=== PATIENT | male | born 1970 | race Caucasian/White ===

== ENCOUNTER 2020-11-03 23:29 | Inpatient (IN) | payer MEDICARE, MEDICAID, OTHER, SELFPAY ==
--- NOTE | ~2020-11-03 | XR_ITS ---
EXAMINATION: XR chest 1V CLINICAL INFORMATION: Shortness of breath COMPARISON: No prior chest x-ray available TECHNIQUE: XR chest 1V Tubes and lines: None Lungs and pleura: Patchy opacities are projecting over the right lower lobe medially and left middle lung zone probably patchy infiltrates. Prominent left hilum. This could be due to lymphadenopathy or vascular prominence. Heart and mediastinum: The mediastinum is within normal limits.. Bones/soft tissue: Skeletal structures included are normal for patient's age. XR/XR chest 1V IMPRESSION: No radiographic evidence of failure. There are patchy opacities over the right lung base and left parahilar region, in the right clinical setting could be patchy areas of infiltrates. Attention to follow-up chest PA and lateral recommended in one month to ensure complete clearance AND EXCLUDE UNDERLYING PATHOLOGIC LESION. Prominent left hilum could be underlying lymph node versus vascular.
--- NOTE | ~2020-11-03 | CT_ITS ---
EXAMINATION: CT ANGIOGRAM OF THE CHEST WITH AND WITHOUT CONTRAST (CT PULMONARY ANGIOGRAM FOR PE) CLINICAL INFORMATION: Pleuritic chest pain COMPARISON: None TECHNIQUE: Prior to contrast administration, noncontrast localization images were obtained. Subsequently, multidetector volumetric imaging was performed from the thoracic inlet to below the diaphragms following the administration of 65 mL Omnipaque 350 intravenous contrast. No contrast reaction reported Sagittal, coronal, and MIP oblique sagittal reformatted images were obtained on the CT workstation, uploaded to PACS, and reviewed. This CT examination was performed using dose optimization techniques as appropriate, variously including the following: *Automated exposure control *Adjustment of mA and/or kV according to patient size (this includes techniques or standardized protocols for targeted exams where dose is matched to indication/reason for exam; i.e. extremities or head) *Use of iterative reconstruction technique Total exam dose-length product 422 mGy-cm FINDINGS: QUALITY OF STUDY/CONTRAST BOLUS: Satisfactory. PULMONARY ARTERIES: Bilateral main pulmonary artery filling defects consistent with emboli. Extension into the lobar and segmental branches. THORACIC AORTA: No aneurysm or dissection. LUNG: Central airways are patent. Moderate paraseptal emphysema. No consolidation. PLEURA: No pleural effusion or pneumothorax. MEDIASTINUM: Normal heart size. No pericardial effusion. No hilar or mediastinal lymphadenopathy. There is septal bowing suggesting right heart strain. CHEST WALL/AXILLA: No axillary or internal mammary lymphadenopathy. OSSEOUS STRUCTURES: No acute or suspicious osseous abnormality. UPPER ABDOMEN: Unremarkable. No reflux of contrast into the hepatic veins to suggest elevated right heart pressures. CT/CT angio chest PE protocol IMPRESSION: Bilateral pulmonary emboli starting at the central right and left pulmonary arteries and extending into the more distal branches. Evidence of elevated right heart pressures. Moderate paraseptal emphysema. This critical result was discussed with Ciara Guzmán MD by telephone at 11/04/2020 2:18 AM and it was ascertained that the content and urgency of the report was understood at the time of direct communication. VTE: positive
--- NOTE | 2020-11-03 23:32 | ED_ITS ---
HPI - Chest Pain General Chief Complaint: Chest Pain Stated Complaint: chest pain sob Time Seen by Provider: 11/03/20 23:32 Source: patient and EMS Mode of arrival: EMS Limitations: other (vague historian) History of Present Illness HPI narrative: 49 yo male with hx of IV cocaine abuse 1 week ago, on methadone for recovery as well - c/o since that time L sided pleuritic chest pain and exertional dyspnea, denies prior cardiac workup in the past, c/o 1 month of RLE swelling MD complaint: chest pain Pertinent past history: other (IV cocaine abuse) Onset (ago): week(s) (1) Timing of current episode: constant Onset: during rest and during exertion Pain location: left chest Pain radiation: none Severity: moderate Quality: sharp Relieving factors: nothing Exacerbating factors: exertion and inspiration Context: other (recent IVDA) Associated symptoms: dyspnea Treatment prior to arrival: aspirin ([phone]) Related Data Home Medications Medication Instructions Recorded Confirmed methadone 10 mg/5 mL oral solution 10 mg PO Q6H 06/02/20 11/04/20 Allergies Allergy/AdvReac Type Severity Reaction Status Date / Time No Known Allergies Allergy Mild N/A Verified 09/02/20 08:07 Review of Systems Review of Systems: Constitutional : No Weight loss, No Fever, No Chills ENT/Mouth : No sore throat, No Rhinorrhea Eyes: No Eye Pain, No Swelling Cardiovascular : pos Chest Pain, pos SOB, pos Dyspnea on Exertion, No Orthopnea, pos R leg Edema, No Palpitations Respiratory : No Cough, No Sputum Gastrointestinal : no Nausea, No Vomiting, No Diarrhea, No abdominal Pain, No Hematochezia, No Melena Genitourinary : No Dysuria, No Urinary Frequency Musculoskeletal : No joint pain, No Myalgias, No Joint Swelling Skin : No Skin Lesions, No rash Neuro : No Weakness, No Numbness, No Dizziness, No Headache Psych : No Anxiety/Panic, No Depression Heme/Lymph: No Bruising, No Lymphadenopathy Endocrine : No Polyuria, No Polydipsia All other systems reviewed and are negative [facility] Past Medical History Medical History (Updated 11/04/20 @ 02:04 by Ciara Guzmán DO) Lumbar disc disease Opiate use Right wrist drop Surgical History History of inguinal hernia repair History of lumbar fusion History of open reduction and internal fixation (ORIF) procedure History of ventral hernia repair Family History Family History Father Leukemia Mother CHF (congestive heart failure) Hypertension H/O ETOH abuse Sister Diabetes Pancreatitis Daughter In good health Son No problems noted. Social History Social History (Updated 11/03/20 @ 23:51 by Ciara Guzmán DO) Alcohol intake: current Alcohol intake frequency: 0-2 drinks per day Patient Tobacco Use Status: Current everyday Tobacco user Cigarette Packs Per Day: 1 Smoked in Last 30 Days: Yes Use of substances other than those prescribed or required for medical reasons: Yes Substance Use Type: Crack/Cocaine, Heroin and IV Drugs Substance Use Frequency: Chronic Longstanding Last Used Substance: Just Prior to Admission Advance Directives: No Advance Directives Information Provided: No Physical Exam Vital Signs: Vital Signs: Last Vital Signs Temp 98.4 F 11/04/20 02:00 Pulse 78 11/04/20 02:00 Resp 16 11/04/20 02:00 BP 116/79 11/04/20 02:00 Pulse Ox 98 11/04/20 02:00 Body Mass Index 31.8 Appearance: Alert. Oriented X3. No acute distress. Anxious Eyes: Pupils equal, round and reactive to light. ENT: Pharynx normal. Neck: Normal inspection. Neck supple. CVS: Normal heart rate and rhythm. Pulses normal. Respiratory: No respiratory distress. Breath sounds normal. Abdomen: Soft and nontender. Skin: Skin warm and dry. Normal skin color. Normal skin turgor. ?track centeno in L AC, bruising noted along veins in R AC Extremities: R leg non pittind edema R>L No calf ttp Neuro: Oriented X 3. No motor deficit. No sensory deficit. Course Course Course Narrative: initial EKG had artifact noted asked for repeat troponin elevated has had chest pain for 1 week, PE study pending at this time - no ischemia on EKG though has rightward axis but no prior EKGs IV morphine for pain will hold nitro at this time given pain is atypical in nature and is pleuritic CTA reviewed by me - PE noted no saddle, IV heparin ordered standard infusion plts and coags already drawn call from Radiology 218aam - bilateral extensive PE, mild signs of R heart strain at this time clinically the patient is HD stable, no hypoxia, HR normal, stable BP discussion with ICU Dr. Gomez - care seems appropriate with heparin gtt, continue heparin gtt and he will evaluate in ED with ECHO given clinical stability no need to transfer at this time or give tPa, hospitalist has declined admission at this time 235am Dr. Gomez at bedside to ECHO patient, currently has remained stable while in ED, some R heart strain but nothing significant and clinically he looks well - would continue anticoagulation at this time, no indication for tPa - will admit patient to the ICU given hospitalist discomfort to admit on the floor. MDM - Chest Pain MDM Narrative Medical decision making narrative: 49 yo male with hx of IV cocaine abuse 1 week ago, on methadone for recovery as well - c/o since that time L sided pleuritic chest pain and exertional dyspnea, denies prior cardiac workup in the past, c/o 1 month of RLE swelling - at this time he is a very vague historian seems atypical for ACS but given pleuritic chest pain and RLE chronic edema will need CTA study, denies fevers does not appear toxic will obtain cultures but endocarditis lower on the list given reported one time use of IVDA, will also obtain EKG and serial troponins Lab Data Result diagrams: 11/04/20 00:26 11/04/20 00:19 Labs: Lab Results 11/04/20 11/04/20 11/04/20 Range/Units 00:19 00:19 00:19 WBC (4.8-10.8) X10*3/uL RBC (4.60-5.80) X10*6/uL Hgb (14.0-18.0) g/dl Hct (42-52) % MCV (80-98) fL MCH (27.0-33.0) pg MCHC (31.0-36.0) g/dl RDW (11.0-16.0) % Plt Count (160-400) X10*3/uL MPV (9.4-12.4) fL Immature Gran % (Auto) (0.0-0.4) % Neut % (Auto) (45-73) % Lymph % (Auto) (20-40) % [place] % (Auto) (2-11) % Eos % (Auto) (0-4) % Baso % (Auto) (0-2) % Lymph # (Auto) (1.2-4.9) X10*3/uL [place] # (Auto) (0.1-1.2) X10*3/uL Eos # (Auto) (0.0-0.4) X10*3/uL Baso # (Auto) (0.0-0.2) X10*3/uL Abs Immat Gran (auto) (0.00-0.03) X10*3/uL Absolute Neuts (auto) (2.0-8.3) X10*3/uL Absolute Nucleated RBC (0.0-0.012) X10*3/uL Nucleated RBC % (auto) (0.0-0.2) /100WBC ESR (0-15) MM/HR PT 13.1 H (9.9-13.0) SEC INR 1.2 H (0.9-1.1) APTT 35.3 (24.1-38.0) SEC Sodium 140 (135-145) mmol/L Potassium 4.1 (3.3-5.1) mmol/L Chloride 103 (96-108) mmol/L Carbon Dioxide 25 (22-29) mmol/L Anion Gap 16 (12-20) BUN 9 (9-16) mg/dL Creatinine 1.03 (0.5-1.4) mg/dL Estim Creat Clear Calc 110.7 Estimated GFR > 60 Random Glucose 96 (60-115) mg/dL Lactic Acid (0.5-2.0) mmol/L Calcium 9.5 (8.4-10.2) mg/dL Magnesium 1.9 (1.6-2.6) mg/dL Total Bilirubin 0.4 (0.0-1.0) mg/dL Direct Bilirubin 0.2 (0.0-0.5) mg/dL AST 22 (5-37) U/L ALT 18 (0-40) U/L Alkaline Phosphatase 96 (39-117) U/L Troponin I High Sens 429.6 H* (<3.5-35.0) ng/L C-Reactive Protein 5.34 H (< or = 0.50) mg/dL B-Natriuretic Peptide 78 (<100) pg/mL Total Protein 7.7 (6.5-8.0) g/dL Albumin 4.6 (3.5-5.0) g/dL Lipase 17 (8-78) U/L Urine Opiates Screen (Not Detect) Ur Barbiturates Screen (Not Detect) Ur Phencyclidine Scrn (Not Detect) Ur Amphetamines Screen (Not Detect) U Benzodiazepines Scrn (Not Detect) Urine Cocaine Screen (Not Detect) U Marijuana (THC) Screen (Not Detect) COVID-19 (GAB[facility]EL) (Negative) COVID-19 Clin Com 11/04/20 11/04/20 11/04/20 Range/Units 00:20 00:20 00:26 WBC 11.7 H (4.8-10.8) X10*3/uL RBC 4.58 L (4.60-5.80) X10*6/uL Hgb 14.3 (14.0-18.0) g/dl Hct 42.5 (42-52) % MCV 92.8 (80-98) fL MCH 31.2 (27.0-33.0) pg MCHC 33.6 (31.0-36.0) g/dl RDW 13.3 (11.0-16.0) % Plt Count 175 (160-400) X10*3/uL MPV 11.1 (9.4-12.4) fL Immature Gran % (Auto) 0.3 (0.0-0.4) % Neut % (Auto) 76.1 H (45-73) % Lymph % (Auto) 13.2 L (20-40) % [place] % (Auto) 7.4 (2-11) % Eos % (Auto) 2.7 (0-4) % Baso % (Auto) 0.3 (0-2) % Lymph # (Auto) 1.5 (1.2-4.9) X10*3/uL [place] # (Auto) 0.9 (0.1-1.2) X10*3/uL Eos # (Auto) 0.3 (0.0-0.4) X10*3/uL Baso # (Auto) 0.0 (0.0-0.2) X10*3/uL Abs Immat Gran (auto) 0.04 H (0.00-0.03) X10*3/uL Absolute Neuts (auto) 8.9 H (2.0-8.3) X10*3/uL Absolute Nucleated RBC 0.000 (0.0-0.012) X10*3/uL Nucleated RBC % (auto) 0.0 (0.0-0.2) /100WBC ESR (0-15) MM/HR PT (9.9-13.0) SEC INR (0.9-1.1) APTT (24.1-38.0) SEC Sodium (135-145) mmol/L Potassium (3.3-5.1) mmol/L Chloride (96-108) mmol/L Carbon Dioxide (22-29) mmol/L Anion Gap (12-20) BUN (9-16) mg/dL Creatinine (0.5-1.4) mg/dL Estim Creat Clear Calc Estimated GFR Random Glucose (60-115) mg/dL Lactic Acid 1.6 (0.5-2.0) mmol/L Calcium (8.4-10.2) mg/dL Magnesium (1.6-2.6) mg/dL Total Bilirubin (0.0-1.0) mg/dL Direct Bilirubin (0.0-0.5) mg/dL AST (5-37) U/L ALT (0-40) U/L Alkaline Phosphatase (39-117) U/L Troponin I High Sens (<3.5-35.0) ng/L C-Reactive Protein (< or = 0.50) mg/dL B-Natriuretic Peptide (<100) pg/mL Total Protein (6.5-8.0) g/dL Albumin (3.5-5.0) g/dL Lipase (8-78) U/L Urine Opiates Screen (Not Detect) Ur Barbiturates Screen (Not Detect) Ur Phencyclidine Scrn (Not Detect) Ur Amphetamines Screen (Not Detect) U Benzodiazepines Scrn (Not Detect) Urine Cocaine Screen (Not Detect) U Marijuana (THC) Screen (Not Detect) COVID-19 ([facility]ABRIEL) Negative (Negative) COVID-19 Clin Com See Note 11/04/20 11/04/20 Range/Units 00:26 01:00 WBC (4.8-10.8) X10*3/uL RBC (4.60-5.80) X10*6/uL Hgb (14.0-18.0) g/dl Hct (42-52) % MCV (80-98) fL MCH (27.0-33.0) pg MCHC (31.0-36.0) g/dl RDW (11.0-16.0) % Plt Count (160-400) X10*3/uL MPV (9.4-12.4) fL Immature Gran % (Auto) (0.0-0.4) % Neut % (Auto) (45-73) % Lymph % (Auto) (20-40) % [place] % (Auto) (2-11) % Eos % (Auto) (0-4) % Baso % (Auto) (0-2) % Lymph # (Auto) (1.2-4.9) X10*3/uL [place] # (Auto) (0.1-1.2) X10*3/uL Eos # (Auto) (0.0-0.4) X10*3/uL Baso # (Auto) (0.0-0.2) X10*3/uL Abs Immat Gran (auto) (0.00-0.03) X10*3/uL Absolute Neuts (auto) (2.0-8.3) X10*3/uL Absolute Nucleated RBC (0.0-0.012) X10*3/uL Nucleated RBC % (auto) (0.0-0.2) /100WBC ESR 13 (0-15) MM/HR PT (9.9-13.0) SEC INR (0.9-1.1) APTT (24.1-38.0) SEC Sodium (135-145) mmol/L Potassium (3.3-5.1) mmol/L Chloride (96-108) mmol/L Carbon Dioxide (22-29) mmol/L Anion Gap (12-20) BUN (9-16) mg/dL Creatinine (0.5-1.4) mg/dL Estim Creat Clear Calc Estimated GFR Random Glucose (60-115) mg/dL Lactic Acid (0.5-2.0) mmol/L Calcium (8.4-10.2) mg/dL Magnesium (1.6-2.6) mg/dL Total Bilirubin (0.0-1.0) mg/dL Direct Bilirubin (0.0-0.5) mg/dL AST (5-37) U/L ALT (0-40) U/L Alkaline Phosphatase (39-117) U/L Troponin I High Sens (<3.5-35.0) ng/L C-Reactive Protein (< or = 0.50) mg/dL B-Natriuretic Peptide (<100) pg/mL Total Protein (6.5-8.0) g/dL Albumin (3.5-5.0) g/dL Lipase (8-78) U/L Urine Opiates Screen POSITIVE H (Not Detect) Ur Barbiturates Screen Not Detected (Not Detect) Ur Phencyclidine Scrn Not Detected (Not Detect) Ur Amphetamines Screen Not Detected (Not Detect) U Benzodiazepines Scrn Not Detected (Not Detect) Urine Cocaine Screen POSITIVE H (Not Detect) U Marijuana (THC) Screen Not Detected (Not Detect) COVID-19 ([facility]AB[facility]EL) (Negative) COVID-19 Clin Com ECG Data ECG #1: Attestation: I personally reviewed and interpreted this ECG as follows: ECG interpretation date: 11/04/20 ECG interpretation time: 01:12 Interpretation: Rate: 85 Rhythm: NSR [place]: rightwards Normal P waves. Normal [place]. Normal QRS complex. ST T wave : nonspecific, no JODIE artifact noted qTC: normal prior studies: none available The study has been interpreted contemporaneously by me. EKG #2 Rate: Rhythm: [place]: Normal P waves. Normal [place]. Normal QRS complex. ST T wave : qTC: prior studies: The study has been interpreted contemporaneously by me. . Critical Care Time Critical Care Time Critical Care Time: Yes Total Critical Care Time: 30 Attestation: IV morphine for pain, CT scan for PE, heparin gtt for extensive PE I attest to this time spent taking care of the patient Discharge Plan Discharge Clinical Impression: Chest pain, pleuritic Pulmonary emboli Qualifiers: Pulmonary embolism type: other Chronicity: acute Acute cor pulmonale presence: unspecified Qualified Code(s): I26.99 - Other pulmonary embolism without acute cor pulmonale Patient Disposition: Admitted As Inpatient
[2020-11-03 23:33] VITALS: BP 118/78; BP 124/85; PULSE 83; PULSE 88; RESP 18; TEMP 37; O2SAT 100; O2SAT 96; BMI 31.8
--- NOTE | 2020-11-03 23:40 | PC.NURSE ---
cp onset- approximately 1 week ago. reports left sided cp, worsening on respirations and, unable to ambulate up stairs without sob. pt is speaking full sentence. Pt reports sob- when talking. Pt reports intermittent fevers since last week. Pt reports recent cocaine use, within last month. reports every day smoke. pt takes methadone each day. denies hep c.
--- NOTE | 2020-11-03 23:44 | ECG_ITS ---
Test Reason : REPEAT Blood Pressure : / mmHG Vent. Rate : 078 BPM Atrial Rate : 078 BPM P-R Int : 158 ms QRS Dur : 098 ms QT Int : 410 ms P-R-T Axes : 066 102 029 degrees QTc Int : 467 ms Normal sinus rhythm Rightward axis Borderline ECG When compared with ECG of 03-NOV-2020 23:35, QT has lengthened Referred By: Ciara Guzmán Electronically Signed By:
[2020-11-04] VITALS (18 sets, daily range): BP systolic 92–129; BP diastolic 60–81; PULSE 63–89; RESP 12–20; TEMP 36.3–37.1; O2SAT 88–98; BMI 32.0
[2020-11-04 00:32] LABS: MANUAL DIFF FLAG NO
[2020-11-04 00:33] LABS: Basophils Percent Auto 0.3 % (0-2); Eosinophils Absolute Auto 0.3 X10*3/uL (0.0-0.4); Eosinophils Percent Auto 2.7 % (0-4); Hematocrit 42.5 % (42-52); Hemoglobin 14.3 g/dl (14.0-18.0); Imm Gran Abs Auto 0.04 X10*3/uL (0.00-0.03); Imm Gran Pct Auto 0.3 % (0.0-0.4); Lymphocytes Absolute Auto 1.5 X10*3/uL (1.2-4.9); Lymphocytes Percent Auto 13.2 % (20-40); Mean Corpuscular HGB Conc 33.6 g/dl (31.0-36.0); Mean Corpuscular Hemoglobin 31.2 pg (27.0-33.0); Mean Corpuscular Volume 92.8 fL (80-98); Mean Platelet Volume 11.1 fL (9.4-12.4); Monocytes Absolute Auto 0.9 X10*3/uL (0.1-1.2); Monocytes Percent Auto 7.4 % (2-11); Neutrophils Absolute Auto 8.9 X10*3/uL (2.0-8.3); Neutrophils Percent Auto 76.1 % (45-73); Platelet Count 175 X10*3/uL (160-400); Red Blood Count 4.58 X10*6/uL (4.60-5.80); Red Cell Distribution Width 13.3 % (11.0-16.0); White Blood Count 11.7 X10*3/uL (4.8-10.8)
[2020-11-04 00:37] LABS: INTERNATIONAL NORM RATIO 1.2 (0.9-1.1); Prothrombin Time 13.1 SEC (9.9-13.0)
[2020-11-04 00:40] LABS: Partial Thromboplastin Time 35.3 SEC (24.1-38.0)
[2020-11-04 00:54] LABS: Lactic Acid 1.6 mmol/L (0.5-2.0)
[2020-11-04 01:12] LABS: COVID-19 Test Negative (Negative); IDNOW Serial# 9DD0AD1C
[2020-11-04 01:14] LABS: Alanine Aminotransferase 18 U/L (0-40); Albumin Level 4.6 g/dL (3.5-5.0); Alkaline Phosphatase 96 U/L (39-117); Anion Gap 16 (12-20); Aspartate Amino Transferase 22 U/L (5-37); Bilirubin Direct 0.2 mg/dL (0.0-0.5); Bilirubin Total 0.4 mg/dL (0.0-1.0); Blood Urea Nitrogen 9 mg/dL (9-16); Calcium 9.5 mg/dL (8.4-10.2); Carbon Dioxide 25 mmol/L (22-29); Chloride 103 mmol/L (96-108); Creatinine Clr Calc Pharmacy 110.7; Estimated Glomerular Filt Rate > 60; Glucose Random 96 mg/dL (60-115); Lipase 17 U/L (8-78); Magnesium 1.9 mg/dL (1.6-2.6); Potassium 4.1 mmol/L (3.3-5.1); Sodium 140 mmol/L (135-145); Total Protein 7.7 g/dL (6.5-8.0)
--- NOTE | 2020-11-04 01:17 | ECG_ITS ---
Test Reason : REPEAT Blood Pressure : / mmHG Vent. Rate : 075 BPM Atrial Rate : 075 BPM P-R Int : 172 ms QRS Dur : 096 ms QT Int : 394 ms P-R-T Axes : 068 094 036 degrees QTc Int : 439 ms Normal sinus rhythm Rightward axis Borderline ECG When compared with ECG of 04-NOV-2020 01:16, No significant change was found Referred By: Ciara Guzmán Electronically Signed By:
[2020-11-04 01:20] LABS: Troponin-I High Sensitivity 429.6 ng/L (<3.5-35.0)
--- NOTE | 2020-11-04 01:22 | ECG_ITS ---
Test Reason : CHEST PAIN Blood Pressure : / mmHG Vent. Rate : 085 BPM Atrial Rate : 085 BPM P-R Int : 166 ms QRS Dur : 078 ms QT Int : 334 ms P-R-T Axes : 065 099 061 degrees QTc Int : 397 ms Artifact in tracing Normal sinus rhythm Rightward axis Borderline ECG No previous ECGs available Referred By: Ciara Guzmán Electronically Signed By:CARYL YO
[2020-11-04 01:41] LABS: C Reactive Protein 5.34 mg/dL (< or = 0.50)
[2020-11-04] MEDS: 0.9 % Sodium Chloride 1,000 ML 999 ML IVCONT (01:48)
[2020-11-04] MEDS: iohexoL 350 MG/ML 100 ML INFUS..BTL 65 ML IV (01:49)
[2020-11-04] MEDS: Morphine Sulfate 4 MG/ML CARTRIDGE IVPUSH ×2 (01:49→20:21)
[2020-11-04] MEDS: ondansetron HCL 4 MG/2 ML VIAL IVPUSH (01:49)
[2020-11-04] MEDS: Heparin Sodium,Porcine 5,000 UNIT/ML VIAL 8500 UNIT IVPUSH (01:53)
[2020-11-04 01:57] LABS: Amphetamine Screen Urine Not Detected (Not Detect); Barbiturates, Urine Not Detected (Not Detect); Benzodiazepines Screen Urine Not Detected (Not Detect); Cannabinoid Screen Urine Not Detected (Not Detect); Cocaine Screen Urine POSITIVE (Not Detect); Opiate Screen Urine POSITIVE (Not Detect); Phencyclidine Screen Urine Not Detected (Not Detect)
[2020-11-04] MEDS: Heparin Sodium,Porcine/1/2NS 25,000 UNIT/250 ML IV.SOLN 14.94 UNIT IVCONT (01:57)
[2020-11-04 02:14] LABS: Erythrocyte Sedimentation Rate 13 MM/HR (0-15)
[2020-11-04 02:31] LABS: B Type Natriuretic Peptide 78 pg/mL (<100)
[2020-11-04 07:45] LABS: PTT Heparin Drip 178.7 SEC (53-77.9)
[2020-11-04 08:42] LABS: PTT Heparin Drip 135.8 SEC (53-77.9)
[2020-11-04 10:13] LABS: PTT Heparin Drip 48.3 SEC (53-77.9)
--- NOTE | 2020-11-04 10:53 | MHC.CM.PN ---
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 Pt is active with a methadone clinic: form with dosing is in his chart: Pt has no services at this time - would like to speak with CARE team re: assistance with ongoing substance use/methadone treatment. Informed MD of pt request. No additional CM needs anticipated
--- NOTE | 2020-11-04 13:57 | P.HPCC_ITS ---
History of Present Illness Date of Service: 11/04/20 Chief Complaint: dyspnea 49-year-old presumably in a detox program for opiate abuse on methadone but urine toxicology positive for opiates and cocaine so clearly he is doing both noted for several weeks progressive increase in the girth of his right lower extremity and then progressive weakness and shortness of breath and chest discomfort and the ER noted positive troponin and BNP with a right intraventricular conduction defect as well as right axis so CTA of the chest was performed indicating significant proximal bilateral pulmonary emboli and my bedside echo showed moderately enlarged right ventricle with with a partial paradoxical motion of the interventricular septum and predominant contractility noted in the apex with the base being virtually akinetic and is certainly consistent with acute right heart dysfunction related to the significant clot burden of the PE however he was not hypotensive not even hypoxic on room air with no demonstrable work of breathing he basically look comfortable could not quite justify the risk of tPA so we elected to place him on heparin and observe him in the ICU with the intent of converting him to tPA should he exacerbate Review of Systems Review of Systems: Yes all other systems are reviewed and are negative PMFSH Past Medical History Medical History (Updated 11/04/20 @ 14:02 by Rochelle Gomez MD) Cyst near coccyx Lumbar disc disease Nasal septum fracture Opiate use Polysubstance dependence including opioid type drug, episodic abuse Right wrist drop Cognitive capacity: cognitive capacity within normal limits Functional capacity: independent ambulation Family History Family History Father Leukemia Mother CHF (congestive heart failure) Hypertension H/O ETOH abuse Sister Diabetes Pancreatitis Daughter In good health Son No problems noted. Surgical History Surgical History History of inguinal hernia repair History of lumbar fusion History of open reduction and internal fixation (ORIF) procedure History of ventral hernia repair Social History Social History (Updated 11/03/20 @ 23:51 by Ciara Guzmán DO) Household Members: Other Household Members Other:: Aunt Housing: House Do you presently have visiting nurse or other home services: No Alcohol intake: current Alcohol intake frequency: 0-2 drinks per day Patient Tobacco Use Status: Current everyday Tobacco user Tobacco use type: Cigarette Cigarette Packs Per Day: 1 Cigarettes Per Day: 20.0 Years Smoked: 33 Smoked in Last 30 Days: Yes e-Cigarette/Vaping Use: Former Use Patient Interested in Nicotine Replacement: Yes Patient Given Instructions on How to Stop Smoking: Yes Date Education Initiated: 11/04/20 Second Hand Smoke Exposure: Yes Use of substances other than those prescribed or required for medical reasons: Yes Substance Use Type: Crack/Cocaine and Heroin Substance Use Frequency: Occasionally Last Used Substance: Days (ago) Currently Displaying Signs/Symptoms of Drug Intoxication Withdrawal: No Any prior treatment program specific to substance use: Yes ([facility]) Have you been hit, kicked, punched, or otherwise hurt by someone within the past year? If so, by whom?: No Do you feel safe in your current relationship?: Yes Is there a partner from a previous relationship who is making you feel unsafe now?: No Are you made to feel afraid or neglected: No [facility] Practices: [facility] Advance Directives: No Advance Directives Information Provided: No Do you have thoughts of harming others: None Do you have a plan to hurt others: No Plan Recently lost weight without trying: No Nutrition Risks: No Nutritional Risk Poor oral hygiene: No service: No Current occupational status: disabled Meds Allergies Allergy/AdvReac Type Severity Reaction Status Date / Time No Known Allergies Allergy Mild N/A Verified 09/02/20 08:07 Active Medications: Current Medications Generic Name Dose Route Start Last Admin Trade Name Freq PRN Reason Stop Dose Admin Heparin Sodium (Porcine) 8,500 unit 11/04/20 01:44 Heparin Sodium,Porcine 5,000 Unit/Ml Vial 80 unit/kg (8500 unit) IVPUSH BOLUS PRN 80 unit/kg - Heparin Protocol Heparin Sodium/Sodium Chloride 25,000 unit in 250 mls @ 0 mls/hr 11/04/20 01:45 11/04/20 10:28 IVCONT 10 units/kg/hr .Q0M BOBBI 10.67 mls/hr Titration Protocol Per Protocol Methadone HCl 120 mg 11/04/20 09:00 11/04/20 11:28 Methadone Hcl 1 Mg/0.1 Ml Oral.Conc PO 120 mg DAILY [facility] Administration Pharmacy Consult 1 each 11/04/20 01:29 Consult Rx Perform Med Rec MISCELLANE ONCE PRN Consult order Home Medications Medication Instructions Recorded Confirmed Last Taken Type methadone 10 mg/5 mL oral solution 125 mg PO DAILY 06/02/20 11/04/2021 09:26 History 125 mg gabapentin 1 cap PO NEEDED PRN 11/04/20 11/04/20 10/28/20 History 1 Physical Exam Vital Signs: Vital Signs: Last Vital Signs Temp 97.3 F 11/04/20 12:00 Pulse 71 11/04/20 13:00 Resp 20 11/04/20 13:00 BP 112/76 11/04/20 13:00 Pulse Ox 96 11/04/20 13:00 Body Mass Index 32.0 awake alert and nonfocal neurologically no neck vein distension and good bilateral carotid upstrokes and no murmurs or bruits abdomen benign no organomegaly chest with no adventitious sounds Results Labs CBC and Chem 7: 11/04/20 00:26 11/04/20 00:19 Labs: Laboratory Results - last 24 hr 11/04/20 11/04/20 11/04/20 00:19 00:19 00:19 MCV MCH MCHC RDW Plt Count MPV Immature Gran % (Auto) Neut % (Auto) Lymph % (Auto) [place] % (Auto) Eos % (Auto) Baso % (Auto) Lymph # (Auto) [place] # (Auto) Eos # (Auto) Baso # (Auto) Abs Immat Gran (auto) Absolute Neuts (auto) Absolute Nucleated RBC Nucleated RBC % (auto) ESR PT 13.1 H INR 1.2 H APTT 35.3 PTT (Heparin Protocol) Anion Gap 16 Estim Creat Clear Calc 110.7 Estimated GFR > 60 Random Glucose 96 Lactic Acid Calcium 9.5 Magnesium 1.9 Total Bilirubin 0.4 Direct Bilirubin 0.2 AST 22 ALT 18 Alkaline Phosphatase 96 Troponin I High Sens 429.6 H* C-Reactive Protein 5.34 H B-Natriuretic Peptide 78 Total Protein 7.7 Albumin 4.6 Lipase 17 Urine Opiates Screen Ur Barbiturates Screen Ur Phencyclidine Scrn Ur Amphetamines Screen U Benzodiazepines Scrn Urine Cocaine Screen U Marijuana (THC) Screen COVID-19 ([facility]EL) COVID-19 Clin Com 11/04/20 11/04/20 11/04/20 00:20 00:20 00:26 MCV 92.8 MCH 31.2 MCHC 33.6 RDW 13.3 Plt Count 175 MPV 11.1 Immature Gran % (Auto) 0.3 Neut % (Auto) 76.1 H Lymph % (Auto) 13.2 L [place] % (Auto) 7.4 Eos % (Auto) 2.7 Baso % (Auto) 0.3 Lymph # (Auto) 1.5 [place] # (Auto) 0.9 Eos # (Auto) 0.3 Baso # (Auto) 0.0 Abs Immat Gran (auto) 0.04 H Absolute Neuts (auto) 8.9 H Absolute Nucleated RBC 0.000 Nucleated RBC % (auto) 0.0 ESR PT INR APTT PTT (Heparin Protocol) Anion Gap Estim Creat Clear Calc Estimated GFR Random Glucose Lactic Acid 1.6 Calcium Magnesium Total Bilirubin Direct Bilirubin AST ALT Alkaline Phosphatase Troponin I High Sens C-Reactive Protein B-Natriuretic Peptide Total Protein Albumin Lipase Urine Opiates Screen Ur Barbiturates Screen Ur Phencyclidine Scrn Ur Amphetamines Screen U Benzodiazepines Scrn Urine Cocaine Screen U Marijuana (THC) Screen COVID-19 ([facility]AB[facility]EL) Negative COVID-19 QThru Com See Note 11/04/20 11/04/20 11/04/20 00:26 01:00 07:11 MCV MCH MCHC RDW Plt Count MPV Immature Gran % (Auto) Neut % (Auto) Lymph % (Auto) [place] % (Auto) Eos % (Auto) Baso % (Auto) Lymph # (Auto) [place] # (Auto) Eos # (Auto) Baso # (Auto) Abs Immat Gran (auto) Absolute Neuts (auto) Absolute Nucleated RBC Nucleated RBC % (auto) ESR 13 PT INR APTT PTT (Heparin Protocol) 178.7 H* Anion Gap Estim Creat Clear Calc Estimated GFR Random Glucose Lactic Acid Calcium Magnesium Total Bilirubin Direct Bilirubin AST ALT Alkaline Phosphatase Troponin I High Sens C-Reactive Protein B-Natriuretic Peptide Total Protein Albumin Lipase Urine Opiates Screen POSITIVE H Ur Barbiturates Screen Not Detected Ur Phencyclidine Scrn Not Detected Ur Amphetamines Screen Not Detected U Benzodiazepines Scrn Not Detected Urine Cocaine Screen POSITIVE H U Marijuana (THC) Screen Not Detected COVID-19 ([facility]EL) COVID-Offsite Care Resources 11/04/20 11/04/20 08:06 09:55 MCV MCH MCHC RDW Plt Count MPV Immature Gran % (Auto) Neut % (Auto) Lymph % (Auto) [place] % (Auto) Eos % (Auto) Baso % (Auto) Lymph # (Auto) [place] # (Auto) Eos # (Auto) Baso # (Auto) Abs Immat Gran (auto) Absolute Neuts (auto) Absolute Nucleated RBC Nucleated RBC % (auto) ESR PT INR APTT PTT (Heparin Protocol) 135.8 H* D 48.3 L D Anion Gap Estim Creat Clear Calc Estimated GFR Random Glucose Lactic Acid Calcium Magnesium Total Bilirubin Direct Bilirubin AST ALT Alkaline Phosphatase Troponin I High Sens C-Reactive Protein B-Natriuretic Peptide Total Protein Albumin Lipase Urine Opiates Screen Ur Barbiturates Screen Ur Phencyclidine Scrn Ur Amphetamines Screen U Benzodiazepines Scrn Urine Cocaine Screen U Marijuana (THC) Screen COVID-19 ([facility]EL) COVID-19 Clin Com Imaging Radiologist's Impressions: Impressions Chest CTA 11/04/20 00:02 IMPRESSION: Bilateral pulmonary emboli starting at the central right and left pulmonary arteries and extending into the more distal branches. Evidence of elevated right heart pressures. Moderate paraseptal emphysema. This critical result was discussed with Ciara Guzmán MD by telephone at 11/04/2020 2:18 AM and it was ascertained that the content and urgency of the report was understood at the time of direct communication. VTE: positive Assessment and Plan (1) SOB (shortness of breath): Status: Acute (2) Exertional dyspnea: Status: Acute (3) Chest pain, pleuritic: Status: Acute (4) Pulmonary emboli: Qualifiers: Acute cor pulmonale presence: unspecified Chronicity: acute Pulmonary embolism type: other Qualified Code(s): I26.99 - Other pulmonary embolism without acute cor pulmonale Status: Acute (5) Deep vein thrombosis: Status: Acute (6) Polysubstance dependence including opioid type drug, episodic abuse: Status: Acute the plan is to continue heparin drip as long as he remains stable clinically
[2020-11-04] MEDS: Heparin Sodium,Porcine 5,000 UNIT/ML VIAL 4300 UNIT IVPUSH (17:31)
[2020-11-04] MEDS: Heparin Sodium,Porcine/1/2NS 25,000 UNIT/250 ML IV.SOLN 12.8 UNIT IVCONT (22:40)
[2020-11-04 23:29] LABS: PTT Heparin Drip 79.6 SEC (53-77.9)
[2020-11-05] VITALS (37 sets, daily range): BP systolic 93–128; BP diastolic 50–93; PULSE 58–87; RESP 11–20; TEMP 36.6–37; O2SAT 90–99; BMI 32.0
--- NOTE | 2020-11-05 02:54 | PC.NURSE ---
intially pt had c/o 7/10 left anterior chest wall pain. pain was decribed as stabbing. pain was worsened with inspiration and cough. pain was reproducible with left anterior chest wall palpation. pt is pleasant and cordial. his sensorium is intact. complexion pale. 1+ pitting edema of lower legs. edema is > on right leg. supplemental 02 2lpm. short of breath with exertion. breath sounds cta/diminished. pt has difficulty taking deep breath d/t splinting related to chest wall pain. ecg displays sr. hemodynamically stable. heparin drip running and adjusted per protocol. abdomen benign. voiding conc nasim urine. plan 1. morphine 4 mg ivp given 2. ptt at 2340 79.6 heparin drip decreased by 2ux/hr to 10 ux/kg/hr 3. repeat ptt-hd at 0540 4. prema stockings applied.
[2020-11-05] MEDS: Morphine Sulfate 4 MG/ML CARTRIDGE IVPUSH (03:08)
[2020-11-05 05:42] LABS: VBG Base Excess 0.8 mmol/L; VBG HCO3 25 mmol/L (22-26); VBG pCO2 40 mmHg; VBG pO2 24 mmHg
[2020-11-05 05:44] LABS: Venous Blood Gas Refer to POC result
[2020-11-05 05:45] LABS: MANUAL DIFF FLAG NO
[2020-11-05 05:51] LABS: Basophils Percent Auto 0.4 % (0-2); Eosinophils Absolute Auto 0.4 X10*3/uL (0.0-0.4); Eosinophils Percent Auto 3.9 % (0-4); Hematocrit 41.3 % (42-52); Hemoglobin 13.4 g/dl (14.0-18.0); Imm Gran Abs Auto 0.02 X10*3/uL (0.00-0.03); Imm Gran Pct Auto 0.2 % (0.0-0.4); Lymphocytes Absolute Auto 1.5 X10*3/uL (1.2-4.9); Lymphocytes Percent Auto 16.8 % (20-40); Mean Corpuscular HGB Conc 32.4 g/dl (31.0-36.0); Mean Corpuscular Hemoglobin 30.9 pg (27.0-33.0); Mean Corpuscular Volume 95.2 fL (80-98); Mean Platelet Volume 11.1 fL (9.4-12.4); Monocytes Absolute Auto 0.7 X10*3/uL (0.1-1.2); Monocytes Percent Auto 7.9 % (2-11); Neutrophils Absolute Auto 6.5 X10*3/uL (2.0-8.3); Neutrophils Percent Auto 70.8 % (45-73); Platelet Count 179 X10*3/uL (160-400); Red Blood Count 4.34 X10*6/uL (4.60-5.80); Red Cell Distribution Width 13.3 % (11.0-16.0); White Blood Count 9.1 X10*3/uL (4.8-10.8)
[2020-11-05 06:00] LABS: INTERNATIONAL NORM RATIO 1.2 (0.9-1.1); Prothrombin Time 13.4 SEC (9.9-13.0)
[2020-11-05 06:02] LABS: PTT Heparin Drip 46.3 SEC (53-77.9)
[2020-11-05 06:18] LABS: Anion Gap 15 (12-20); Blood Urea Nitrogen 10 mg/dL (9-16); Calcium 9.2 mg/dL (8.4-10.2); Carbon Dioxide 23 mmol/L (22-29); Chloride 104 mmol/L (96-108); Creatinine Clr Calc Pharmacy 107.7; Estimated Glomerular Filt Rate > 60; Glucose Random 108 mg/dL (60-115); Magnesium 1.8 mg/dL (1.6-2.6); Phosphorus 2.8 mg/dL (2.7-4.5); Potassium 4.1 mmol/L (3.3-5.1); Sodium 138 mmol/L (135-145)
[2020-11-05] MEDS: Ketorolac Tromethamine 30 MG/ML VIAL IVPUSH (07:09)
[2020-11-05 14:42] LABS: Cardiolipin IgG Ab <2.0 GPL-U/mL; Cardiolipin IgM Ab 6.7 MPL-U/mL
--- NOTE | 2020-11-05 15:33 | PM.CCPN ---
Subjective Subjective Date of Service: 11/05/20 Interval History: 49-year-old male presented with DVT of right lower extremity and bilateral pulmonary emboli with and at least a moderate degree of pulmonary hypertension and right heart dysfunction but with stable vital signs no distress no hypoxia and we brought him to put him on heparin but over the ensuing 24 hours we could barely make him therapeutic on the heparin and then all of a sudden this morning he was bolt upright severe pleuritic pain very panicked very tachypneic but I think it was overwhelmingly pleuritic pain rather than dyspnea and initially I thought he became increasingly hypoxic but my bedside echo did indicate a significantly enlarged right ventricle with poor function except for the very apex so I had to make it presumptive diagnosis of a recurrent embolism possibly an ongoing pulmonary infarct with the pleurisy and stop the heparin and gave him a 2 hour 100 mg infusion of tPA to which he responded beautifully without complication no dyspnea respiratory rate diminished and his pleurisy completely resolved and in addition he had received 30 mg of IV Toradol Critical Care Time (minutes): 45 Physical Exam Vital Signs: Vital Signs: Last Vital Signs Temp 97.9 F 11/05/20 12:00 Pulse 68 11/05/20 15:00 Resp 12 11/05/20 15:00 BP 97/67 11/05/20 15:00 Pulse Ox 92 11/05/20 15:00 Body Mass Index 32.0 Const: Other: initially severe respiratory distress and d istress from pain neurologically intact bedside echo demonstrating possibly somewhat worsened right ventricular function indicating possible recurrent embolism with worse pulmonary hypertension but now completely stable in and very rested looking so I think we had clinical resolution which we will recheck by echo in the morning Objective Data Labs CBC & Chem 7: 11/05/20 05:37 11/05/20 05:37 Labs: Laboratory Results - last 24 hr 11/04/20 11/04/20 11/04/20 07:10 16:42 23:13 WBC RBC Hgb Hct MCV MCH MCHC RDW Plt Count MPV Immature Gran % (Auto) Neut % (Auto) Lymph % (Auto) [place] % (Auto) Eos % (Auto) Baso % (Auto) Lymph # (Auto) [place] # (Auto) Eos # (Auto) Baso # (Auto) Abs Immat Gran (auto) Absolute Neuts (auto) Absolute Nucleated RBC Nucleated RBC % (auto) PT INR APTT PTT (Heparin Protocol) 45.0 L 79.6 H D VBG pH VBG pCO2 VBG pO2 VBG HCO3 VBG O2 Saturation VBG Base Excess Sodium Potassium Chloride Carbon Dioxide Anion Gap BUN Creatinine Estim Creat Clear Calc Estimated GFR Random Glucose Calcium Phosphorus Magnesium Anti-Cardiolipin IgG Ab <2.0 Anti-Cardiolipin IgM Ab 6.7 11/05/20 11/05/20 11/05/20 05:35 05:37 05:37 WBC 9.1 RBC 4.34 L Hgb 13.4 L Hct 41.3 L MCV 95.2 MCH 30.9 MCHC 32.4 RDW 13.3 Plt Count 179 MPV 11.1 Immature Gran % (Auto) 0.2 Neut % (Auto) 70.8 Lymph % (Auto) 16.8 L [place] % (Auto) 7.9 Eos % (Auto) 3.9 Baso % (Auto) 0.4 Lymph # (Auto) 1.5 [place] # (Auto) 0.7 Eos # (Auto) 0.4 Baso # (Auto) 0.0 Abs Immat Gran (auto) 0.02 Absolute Neuts (auto) 6.5 Absolute Nucleated RBC 0.000 Nucleated RBC % (auto) 0.0 PT 13.4 H INR 1.2 H APTT PTT (Heparin Protocol) 46.3 L D VBG pH 7.40 VBG pCO2 40 VBG pO2 24 VBG HCO3 25 VBG O2 Saturation 30.0 VBG Base Excess 0.8 Sodium Potassium Chloride Carbon Dioxide Anion Gap BUN Creatinine Estim Creat Clear Calc Estimated GFR Random Glucose Calcium Phosphorus Magnesium Anti-Cardiolipin IgG Ab Anti-Cardiolipin IgM Ab 11/05/20 11/05/20 05:37 05:37 WBC RBC Hgb Hct MCV MCH MCHC RDW Plt Count MPV Immature Gran % (Auto) Neut % (Auto) Lymph % (Auto) [place] % (Auto) Eos % (Auto) Baso % (Auto) Lymph # (Auto) [place] # (Auto) Eos # (Auto) Baso # (Auto) Abs Immat Gran (auto) Absolute Neuts (auto) Absolute Nucleated RBC Nucleated RBC % (auto) PT Cancelled INR Cancelled APTT Cancelled PTT (Heparin Protocol) VBG pH VBG pCO2 VBG pO2 VBG HCO3 VBG O2 Saturation VBG Base Excess Sodium 138 Potassium 4.1 Chloride 104 Carbon Dioxide 23 Anion Gap 15 BUN 10 Creatinine 1.06 Estim Creat Clear Calc 107.7 Estimated GFR > 60 Random Glucose 108 Calcium 9.2 Phosphorus 2.8 Magnesium 1.8 Anti-Cardiolipin IgG Ab Anti-Cardiolipin IgM Ab Microbiology Microbiology Results: Microbiology 11/04/20 00:26 Blood - Venous Blood Culture - Preliminary No growth after 24 hours. 11/04/20 00:19 Blood - Venous Blood Culture - Preliminary No growth after 24 hours. Progress Note: A&P Assessment and plan (1) Polysubstance dependence including opioid type drug, episodic abuse: Status: Acute (2) Deep vein thrombosis: Status: Acute (3) Sciatica: Status: Acute (4) Screening for diabetes mellitus (DM): Status: Acute (5) Screening for hypercholesterolemia: Status: Acute (6) Screening for STD (sexually transmitted disease): Status: Acute (7) Screening for hypothyroidism: Status: Acute (8) SOB (shortness of breath): Status: Acute (9) Exertional dyspnea: Status: Acute (10) Chest pain, pleuritic: Status: Acute (11) Pulmonary emboli: Status: Acute Assessment and Plan: so we will begin Lovenox this evening as part of his follow-up therapy and if he remains stable with no bleeding possibly convert him to an oral anticoagulant by Saturday Quality Stroke Does the patient have a stroke diagnosis?: No VTE Prior VTE?: Yes VTE Risk Level:: Medical - moderate - high VTE Device Contraindication: Procedure Contraindicated VTE Drug Contraindication: N/A - Med Ordered
--- NOTE | 2020-11-05 19:34 | PC.NURSE ---
assumed care at 0700; patient was given tpa at 07:30, TPA protocol maintained. Patient neuros intact. Reported resolution of chest discomfort shortly after tpa. Patient had right sided chest pain, worse on deep palpation and improved witih palpation and nonradiating and sharp/burning 4-5/10 pain early this morning, shortly after, was down to 0/10 pain at rest in late morning. Patient felt much better, discussed intention to quit smoking, did have productive cough of balderas/greenish sputum; no hemoptysis; MD aware. Patient afebrile. Patient ambulated a short distance with steady gait, is OOb to chair. Did well with meals/appetite
--- NOTE | 2020-11-05 20:12 | PC.NURSE ---
(LATE ENTRY) 0740- the following reported to dr evans and jonathan chau- 1. pt has developed sudden onset right sided chest wall pain 2. pain has come on suddenly and is the worst pain that he has experienced since admit to hospital 3. pt is anxious and restless 4. he is sob and has resp splinting d/t chest wall pain 5. pain is worsened by deep breathing and cough 6. supplemental o2 2lpm 7. sao2 95% 8. breath sounds diminished a few insp wheezes 8. heart rate has increased from 60s bpm to 80 bpm 9. ecg displays sr 10. tachypneic rr 28 bpm 11. ptt hd subtherapeutic 12. heparin drip is off per md 13. awaiting lovenox to be administered- a. dr evans and jonathan chau at bedside to evaluate 2. dr evans performing emergent bedside echocardiogram to examine right ventricle for increased dilation and strain 3. stat cxr 4. hold lovenox 5. will be administering emergent tpa-
[2020-11-05] MEDS: Enoxaparin Sodium 120 MG/0.8 ML SYRINGE 105 MG SUBCUT (20:54)
[2020-11-06] VITALS (13 sets, daily range): BP systolic 95–117; BP diastolic 54–72; PULSE 52–70; RESP 10–18; TEMP 36.2–36.5; O2SAT 93–99; BMI 32.0
--- NOTE | 2020-11-06 03:47 | PC.NURSE ---
pt oob in recliner watching tv most of the night. sensorium intact. no focal deficits. spirits high and thankful to be alive. complexion pale. 1+ edema lower legs r>l. prema knee high stockings being worn. pt stands to void. stance steady. resp effort is regular unlabored. pt is able to take deep breaths without pain. auscultation of a/p lung harp reveals fine crackles in the left lung base.pt has had no pleuretic pain over night. hemodynamically stable. ecg displays sb-sr. abdomen benign.voiding clear nasim urine in urinal.
[2020-11-06 05:23] LABS: MANUAL DIFF FLAG NO
[2020-11-06 05:25] LABS: Basophils Absolute Auto 0.1 X10*3/uL (0.0-0.2); Basophils Percent Auto 0.8 % (0-2); Eosinophils Absolute Auto 0.4 X10*3/uL (0.0-0.4); Eosinophils Percent Auto 6.2 % (0-4); Hematocrit 39.6 % (42-52); Hemoglobin 13.1 g/dl (14.0-18.0); Imm Gran Abs Auto 0.03 X10*3/uL (0.00-0.03); Imm Gran Pct Auto 0.5 % (0.0-0.4); Lymphocytes Absolute Auto 2.1 X10*3/uL (1.2-4.9); Lymphocytes Percent Auto 31.1 % (20-40); Mean Corpuscular HGB Conc 33.1 g/dl (31.0-36.0); Mean Corpuscular Hemoglobin 31.3 pg (27.0-33.0); Mean Corpuscular Volume 94.5 fL (80-98); Mean Platelet Volume 11.1 fL (9.4-12.4); Monocytes Absolute Auto 0.8 X10*3/uL (0.1-1.2); Monocytes Percent Auto 11.3 % (2-11); Neutrophils Absolute Auto 3.4 X10*3/uL (2.0-8.3); Neutrophils Percent Auto 50.1 % (45-73); Platelet Count 165 X10*3/uL (160-400); Red Blood Count 4.19 X10*6/uL (4.60-5.80); Red Cell Distribution Width 13.2 % (11.0-16.0); White Blood Count 6.7 X10*3/uL (4.8-10.8)
[2020-11-06 05:35] LABS: INTERNATIONAL NORM RATIO 1.3 (0.9-1.1); Prothrombin Time 14.7 SEC (9.9-13.0)
[2020-11-06 05:38] LABS: Partial Thromboplastin Time 36.5 SEC (24.1-38.0)
[2020-11-06 05:55] LABS: Anion Gap 12 (12-20); Blood Urea Nitrogen 15 mg/dL (9-16); Calcium 9.1 mg/dL (8.4-10.2); Carbon Dioxide 25 mmol/L (22-29); Chloride 105 mmol/L (96-108); Creatinine Clr Calc Pharmacy 105.7; Estimated Glomerular Filt Rate > 60; Glucose Random 96 mg/dL (60-115); Phosphorus 3.9 mg/dL (2.7-4.5); Potassium 4.4 mmol/L (3.3-5.1); Sodium 138 mmol/L (135-145)
--- NOTE | 2020-11-06 07:35 | PM.CCPN ---
Subjective Subjective Date of Service: 11/06/20 Interval History: 49-year-old who is on a methadone detox program but clearly is still abusing drugs because he had a toxicology screen positive for both cocaine and opiates but he presented with several weeks of her progressive swelling and pain in his right lower extremity and then started to become dyspneic with chest discomfort noted to have significant clot burden bilateral pulmonary emboli and and although there was some right ventricular dilatation and free wall dysfunction he was virtually asymptomatic and actually on room air at rest and was started on heparin but for that 24 hours the most of that time the heparin was subtherapeutic and then all of a sudden he became dramatically symptomatic developed the pleuritic discomfort markedly tachypneic sitting bolt upright and and repeat echo showed that there was a greater degree of right heart dysfunction presumably therefore we had a recurrent embolism and the with the pleuritic component to his discomfort we did know if this actually represented ischemic and lung that was threatening to infarct or actually did represented infarction but we chose to switch him to tPA and he received 100 mg over 2 hours with complete resolution of the entire syndrome and he has been completely asymptomatic since then on room air with perfect hemodynamics and my bedside echo shows restored right ventricular dimension and function no longer has paradoxical septal motion nothing to imply right heart burden and the inferior vena cava is of normal diameter with normal inspiratory collapse indicating normal right heart filling pressures I sent off a medical hypercoagulable workup which is pending currently is on Lovenox injections and he will receive 1 this morning which is now 24 hours after the tPA so at your discretion he could be started tonight as of tonight's dose on an oral agent such as Eliquis and stop the Lovenox Critical Care Time (minutes): 35 Physical Exam Vital Signs: Vital Signs: Last Vital Signs Temp 97.2 F 11/06/20 03:59 Pulse 59 11/06/20 07:00 Resp 13 11/06/20 07:00 BP 109/67 11/06/20 07:00 Pulse Ox 99 11/06/20 07:00 Body Mass Index 32.0 Const: Other: neurologically intact cardiovascular normal most most especially right heart 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 lungs are clear wi thout adventitious sounds abdomen benign with no organomegaly Objective Data Labs CBC & Chem 7: 11/06/20 05:16 11/06/20 05:16 Labs: Laboratory Results - last 24 hr 11/04/20 11/06/20 11/06/20 07:10 05:16 05:16 WBC 6.7 RBC 4.19 L Hgb 13.1 L Hct 39.6 L MCV 94.5 MCH 31.3 MCHC 33.1 RDW 13.2 Plt Count 165 MPV 11.1 Immature Gran % (Auto) 0.5 H Neut % (Auto) 50.1 Lymph % (Auto) 31.1 [place] % (Auto) 11.3 H Eos % (Auto) 6.2 H Baso % (Auto) 0.8 Lymph # (Auto) 2.1 [place] # (Auto) 0.8 Eos # (Auto) 0.4 Baso # (Auto) 0.1 Abs Immat Gran (auto) 0.03 Absolute Neuts (auto) 3.4 Absolute Nucleated RBC 0.000 Nucleated RBC % (auto) 0.0 PT 14.7 H INR 1.3 H APTT 36.5 Sodium Potassium Chloride Carbon Dioxide Anion Gap BUN Creatinine Estim Creat Clear Calc Estimated GFR Random Glucose Calcium Phosphorus Magnesium Anti-Cardiolipin IgG Ab <2.0 Anti-Cardiolipin IgM Ab 6.7 11/06/20 05:16 WBC RBC Hgb Hct MCV MCH MCHC RDW Plt Count MPV Immature Gran % (Auto) Neut % (Auto) Lymph % (Auto) [place] % (Auto) Eos % (Auto) Baso % (Auto) Lymph # (Auto) [place] # (Auto) Eos # (Auto) Baso # (Auto) Abs Immat Gran (auto) Absolute Neuts (auto) Absolute Nucleated RBC Nucleated RBC % (auto) PT INR APTT Sodium 138 Potassium 4.4 Chloride 105 Carbon Dioxide 25 Anion Gap 12 BUN 15 Creatinine 1.08 Estim Creat Clear Calc 105.7 Estimated GFR > 60 Random Glucose 96 Calcium 9.1 Phosphorus 3.9 Magnesium 2.0 Anti-Cardiolipin IgG Ab Anti-Cardiolipin IgM Ab Microbiology Microbiology Results: Microbiology 11/04/20 00:26 Blood - Venous Blood Culture - Preliminary No growth after 48 hours. 11/04/20 00:19 Blood - Venous Blood Culture - Preliminary No growth after 48 hours. Progress Note: A&P Assessment and plan (1) Polysubstance dependence including opioid type drug, episodic abuse: Status: Acute (2) Deep vein thrombosis: Status: Acute (3) Sciatica: Status: Acute (4) Screening for diabetes mellitus (DM): Status: Acute (5) Screening for hypercholesterolemia: Status: Acute (6) Screening for STD (sexually transmitted disease): Status: Acute (7) Screening for hypothyroidism: Status: Acute (8) SOB (shortness of breath): Status: Acute (9) Exertional dyspnea: Status: Acute (10) Chest pain, pleuritic: Status: Acute (11) Pulmonary emboli: Status: Acute Assessment and Plan: so the plan is to give him 1 more dose of Lovenox this morning which is the 24 hour point after the tPA and if he remains uncomplicated without bleeding issues he could be started on an oral agent tonight at about the 7 or 8:00 p.m. so such as apixaban Quality Stroke Does the patient have a stroke diagnosis?: No VTE Prior VTE?: Yes VTE Risk Level:: Medical - moderate - high VTE Device Contraindication: Procedure Contraindicated VTE Drug Contraindication: N/A - Med Ordered
[2020-11-06] MEDS: Enoxaparin Sodium 120 MG/0.8 ML SYRINGE 105 MG SUBCUT (10:15)
[2020-11-06] MEDS: Nicotine Polacrilex 2 MG GUM BUCCAL ×4 (14:51→20:55)
--- NOTE | 2020-11-06 19:03 | PC.NURSE ---
Assumed care at 07:00. Patient alert, anxious, vaguely manic. Patient ambulated well with steady gait. Patient with good appetite, BM today, formed. Patient with good teachback, questions about his care addressed with physician. Patient educated about plan of care and about eliquis with good teachback. Patient expressed nicotine cravings, these were addressed with physician and nicotine gum ordered and administered with moderate good effect, and patient asked for increased nicotine dose, MD notified and declined increase. Transferred to Med/surg this afternoon.
[2020-11-06] MEDS: Apixaban 5 MG TABLET 10 MG PO (20:47)
[2020-11-07 03:32] VITALS: BP 113/64; PULSE 64; RESP 20; TEMP 37; O2SAT 96
[2020-11-07 04:56] LABS: MANUAL DIFF FLAG NO
[2020-11-07 05:02] LABS: Basophils Percent Auto 0.5 % (0-2); Eosinophils Absolute Auto 0.4 X10*3/uL (0.0-0.4); Eosinophils Percent Auto 6.3 % (0-4); Hematocrit 37.7 % (42-52); Hemoglobin 12.6 g/dl (14.0-18.0); Imm Gran Abs Auto 0.03 X10*3/uL (0.00-0.03); Imm Gran Pct Auto 0.5 % (0.0-0.4); Lymphocytes Absolute Auto 1.5 X10*3/uL (1.2-4.9); Mean Corpuscular HGB Conc 33.4 g/dl (31.0-36.0); Mean Corpuscular Hemoglobin 31.3 pg (27.0-33.0); Mean Corpuscular Volume 93.8 fL (80-98); Mean Platelet Volume 10.7 fL (9.4-12.4); Monocytes Absolute Auto 0.8 X10*3/uL (0.1-1.2); Monocytes Percent Auto 12.5 % (2-11); Neutrophils Absolute Auto 3.7 X10*3/uL (2.0-8.3); Neutrophils Percent Auto 57.2 % (45-73); Platelet Count 192 X10*3/uL (160-400); Red Blood Count 4.02 X10*6/uL (4.60-5.80); Red Cell Distribution Width 13.2 % (11.0-16.0); White Blood Count 6.5 X10*3/uL (4.8-10.8)
[2020-11-07 05:07] LABS: INTERNATIONAL NORM RATIO 1.4 (0.9-1.1); Prothrombin Time 15.7 SEC (9.9-13.0)
[2020-11-07 05:10] LABS: Partial Thromboplastin Time 35.1 SEC (24.1-38.0)
[2020-11-07 05:27] LABS: Anion Gap 14 (12-20); Blood Urea Nitrogen 13 mg/dL (9-16); Calcium 9.2 mg/dL (8.4-10.2); Carbon Dioxide 25 mmol/L (22-29); Chloride 106 mmol/L (96-108); Creatinine Clr Calc Pharmacy 109.8; Estimated Glomerular Filt Rate > 60; Glucose Random 73 mg/dL (60-115); Magnesium 1.9 mg/dL (1.6-2.6); Phosphorus 3.7 mg/dL (2.7-4.5); Potassium 4.5 mmol/L (3.3-5.1); Sodium 140 mmol/L (135-145)
[2020-11-07 06:00] VITALS: BMI 31.1
[2020-11-07 07:50] VITALS: BP 113/67; PULSE 77; RESP 18; TEMP 36.1; O2SAT 100
--- NOTE | 2020-11-07 09:23 | P.DS_ITS ---
DS: Providers Provider Date of Service: 11/07/20 Date of admission: 11/04/20 06:38 Primary care physician: Unknown Physician DS: Diagnosis Discharge Diagnosis (1) Polysubstance dependence including opioid type drug, episodic abuse: Status: Acute (2) Deep vein thrombosis: Status: Acute (3) Sciatica: Status: Acute (4) Screening for diabetes mellitus (DM): Status: Acute (5) Screening for hypercholesterolemia: Status: Acute (6) Screening for STD (sexually transmitted disease): Status: Acute (7) Screening for hypothyroidism: Status: Acute (8) SOB (shortness of breath): Status: Acute (9) Exertional dyspnea: Status: Acute (10) Chest pain, pleuritic: Status: Acute (11) Pulmonary emboli: Status: Acute DS: Medications Discharge Medications Home Medications: Home Medications Medication Instructions Recorded Confirmed methadone 10 mg/5 mL oral solution 125 mg PO DAILY 06/02/20 11/04/20 gabapentin 1 cap PO NEEDED PRN 11/04/20 11/04/20 Previous Rx's Medication Instructions Recorded apixaban [Eliquis] 10 mg PO BID #60 tab 11/07/20 nicotine (polacrilex) 2 mg BUCCAL Q1H PRN #20 ea 11/07/20 DS: Summary Hospital Course Hospital Course: patient was admitted for acute pulmonary embolism with high clot burden and RV strain. he was started on IV heparin and monitored in the ICU. patient then suddenly had chest pain, worsening sob, had acute hypoxic respiratory failure. bedside echo showed worsening right heart strain, IV tpa was given, with wuick improvement in symptoms. patient was later downgraded to medical floor, continued to do well and will be transitioned to eliquis for duration of therapy still to be determined. he has a hypercoaguable work up in progress. Time Spent with Patient Time attestation: Total time spent providing and/or coordinating discharge services: Discharge coordination time: Greater than 30 minutes Quality: Stroke Does the patient have a stroke diagnosis?: No Physical Exam Vital Signs: Vital Signs: Last Vital Signs Temp 97.0 F 11/07/20 07:50 Pulse 77 11/07/20 07:50 Resp 18 11/07/20 07:50 BP 113/67 11/07/20 07:50 Pulse Ox 100 11/07/20 07:50 Body Mass Index 31.1 General: AO X 3, no acute distress Resp: CTA bilateral CVS: S1,S2,RRR GI: soft, non tender, non distended Neuro: motor grossly intact Psych: appropriate affect DS: Data Data Completed and Pending Labs on day of discharge: Laboratory Results - last 24 hr 11/07/20 11/07/20 11/07/20 04:34 04:34 04:34 WBC 6.5 RBC 4.02 L Hgb 12.6 L Hct 37.7 L MCV 93.8 MCH 31.3 MCHC 33.4 RDW 13.2 Plt Count 192 MPV 10.7 Immature Gran % (Auto) 0.5 H Neut % (Auto) 57.2 Lymph % (Auto) 23.0 Charlotte % (Auto) 12.5 H Eos % (Auto) 6.3 H Baso % (Auto) 0.5 Lymph # (Auto) 1.5 Charlotte # (Auto) 0.8 Eos # (Auto) 0.4 Baso # (Auto) 0.0 Abs Immat Gran (auto) 0.03 Absolute Neuts (auto) 3.7 Absolute Nucleated RBC 0.000 Nucleated RBC % (auto) 0.0 PT 15.7 H INR 1.4 H APTT 35.1 Sodium 140 Potassium 4.5 Chloride 106 Carbon Dioxide 25 Anion Gap 14 BUN 13 Creatinine 1.04 Estim Creat Clear Calc 109.8 Estimated GFR > 60 Random Glucose 73 Calcium 9.2 Phosphorus 3.7 Magnesium 1.9 Preliminary micro results at discharge 11/04/20 00:26 Blood Culture - Preliminary Blood - Venous No growth after 48 hours. 11/04/20 00:19 Blood Culture - Preliminary Blood - Venous No growth after 48 hours. Discharge Plan Discharge Patient Disposition: Home, Self-Care Discharge Diagnosis: PE Referrals: Physician,Unknown [Primary Care Provider] - 1 Week Discharge Medications: New nicotine (polacrilex) 2 mg Gum 2 mg buccal Q1H PRN (Reason: withdrawl) Qty: 20 RF: 0 Eliquis 5 mg Tablet 10 mg PO BID Qty: 60 RF: 0 Continued gabapentin 300 mg capsule 1 cap PO NEEDED PRN (Reason: neuropathy) RF: 0 methadone 10 mg/5 mL solution 125 mg PO DAILY RF: 0 Discharge Orders: Discharge Order (Routine); Ordered 11/07/20 Ordered By: Dimitri Baumann Diet: advance to usual diet Activity on Discharge: As tolerated Stand Alone Forms: Patient Portal Discharge page Other Ambulatory Orders: CA echo transthoracic complete (Routine) Timeframe: 1 Week Facility: [facility] - Location: Cardiology Ordered By: Dimitri Baumann Care Plan Goals: recovery Health Concerns: PE Plan of Treatment: eliquis 10mg bid for 6 more days, then decrease to 5mg bid, duration of therapy to be determined, obtain outpatient echocardiogram Assessment: see above
--- NOTE | 2020-11-07 09:26 | MHC.CM.PN ---
pt dcd into police custody
--- NOTE | 2020-11-07 09:29 | MHC.CM.PN ---
pt dcd home n skilled servceis ordered by .to be transported by family
[2020-11-07] MEDS: Apixaban 5 MG TABLET 10 MG PO (10:04)
[2020-11-07 13:12] LABS: DRVVT Confirmation NEGATIVE (NEGATIVE); Hexagonal Phase Neutralization NEGATIVE (NEGATIVE); PTT (LAC) Screen 164 sec (< OR = 40)
[2020-11-07 16:51] LABS: Homocysteine 11.8 umol/L (<11.4)
[2020-11-08 18:46] LABS: Anti-Thrombin III Antigen 97 % (80-120)
[2020-11-08 21:41] LABS: Protein C Activity 94 % (70-180); Protein S Activity rflx Tot&Fr 115 % (70-150)
== END 2020-11-07 10:53 | disposition home or self-care (01) | DRG 175 ==
LOC: HO.ED 11-04 02:04 → HO.EDOVER 11-04 06:57 → HO.ICU 11-04 06:59 → HO.IMC 11-06 16:44
PROVIDERS: Physician Assistant; Admitting Provider Internal Medicine Cardiovascular Disease; Emergency Provider Emergency Medicine; PCP Physician Assistant; Visit Provider Internal Medicine
DX: I26.99 Other pulmonary embolism without acute cor pulmonale (principal); J96.01 Acute respiratory failure with hypoxia; F11.20 Opioid dependence, uncomplicated; I51.9 Heart disease, unspecified; F19.10 Other psychoactive substance abuse, uncomplicated; F17.210 Nicotine dependence, cigarettes, uncomplicated; Z20.822 Contact with and (suspected) exposure to COVID-19; Z71.6 Tobacco abuse counseling; Z79.01 Long term (current) use of anticoagulants; Z79.899 Other long term (current) drug therapy
CPT/HCPCS: 36415; 71045; 71275; 80048; 80076; 80307; 81240; 81241; 83090; 83605; 83690; 83735; 83880; 84100; 84484; 85025; 85301; 85302; 85303; 85305; 85306; 85597; 85610; 85613; 85652; 85730; 86140; 86147; 87040; 87635; 93005; 99285; J1650; J1885; J2270; J2405; J2997; Q9967

== ENCOUNTER 2021-10-23 18:46 | Emergency (ER) | payer MEDICARE, SELFPAY ==
--- NOTE | 2021-10-23 | ECG_ITS ---
Test Reason : MEDICAL CLEAR Blood Pressure : / mmHG Vent. Rate : 063 BPM Atrial Rate : 063 BPM P-R Int : 192 ms QRS Dur : 100 ms QT Int : 426 ms P-R-T Axes : 067 080 063 degrees QTc Int : 435 ms Normal sinus rhythm Nonspecific ST and T wave abnormality Borderline ECG When compared with ECG of 03-NOV-2020 23:35, No significant change was found Referred By: Asa Philip Electronically Signed By:CARYL YO
[2021-10-23 19:34] VITALS: BP 112/99; PULSE 84; RESP 15; TEMP 36.3; O2SAT 98; BMI 32.5
[2021-10-23 20:11] LABS: Appearance Urine CLEAR; Color Urine YELLOW; Glucose Urine UA NEG (NEG); Leukocyte Esterase Urine NEG (NEG); Nitrite Urine NEG (NEG); Specific Gravity - Urine >= 1.030 (1.005-1.025); Urine Blood NEG (NEG); Urine Ketones 15 MG/DL (NEG); Urine Protein TRACE MG/DL (NEG-TRACE)
[2021-10-23 21:46] VITALS: BP 137/88; PULSE 84; RESP 18; TEMP 36.2; O2SAT 98
--- NOTE | 2021-10-23 21:53 | ED.PSYCH ---
HPI - Psych General Chief Complaint: Psychiatric Symptoms Stated Complaint: psych evaluation Time Seen by Provider: 10/23/21 21:53 Source: patient Mode of arrival: ambulatory Limitations: no limitations History of Present Illness HPI Narrative: 50-year-old male post medical history of polysubstance use presents to the ED with anxiety and paranoia that his aunt is trying to poison him over the last 3 days. Patient brought samples of his food and claims that there is cleaner in them and that this is causing him and all of his fluids to give him a burning sensation throughout his entire bod. He states with defecation and urination he feels extreme fiery pain, his tears goldstein so bad that as the stream down his face and into his mouth his face was melting. Patient reports his last drug use was over 1 week ago and included heroin and cocaine. Patient denies suicidal or homicidal ideations at this time and does not take any medications. Sees a therapist regularly. Patient states that he has no psychiatric history and no medical complaints other than the burning at this time. Dont touch me the poison can be transmitted Related Data Home Medications Medication Instructions Recorded Confirmed methadone 10 mg/5 mL oral solution 121 mg PO DAILY 09/13/21 09/13/21 Previous Rx's Medication Instructions Recorded gabapentin 300 mg capsule 300 mg PO TID 30 days #90 caps 08/22/21 apixaban 5 mg tablet (Eliquis) 5 mg PO BID 30 days #60 tabs 09/19/21 tizanidine 2 mg tablet 2 mg PO BEDTIME muscle spasticity 09/20/21 30 days #30 tabs Allergies Allergy/AdvReac Type Severity Reaction Status Date / Time No Known Allergies Allergy Mild N/A Verified 09/13/21 13:49 Review of Systems Review of Systems: Constitutional : No Fever, No Chills ENT/Mouth : No Ear Pain, No Nasal Congestion, No sore throat Eyes: No Eye Pain, No Swelling, No Redness Cardiovascular : No Chest Pain, No SOB Respiratory : No Cough, No Sputum, No Dyspnea Gastrointestinal : No Nausea, No Vomiting, No Diarrhea, No Hematochezia, No Melena Genitourinary : No Dysuria, No Urinary Frequency, No Hematuria Musculoskeletal : No Myalgias Skin : No Skin Lesions, No rash Neuro : No Weakness, No Numbness, No Paresthesias, No Dizziness, No Headache Psych : positive Anxiety, No Depression, No SI/HI All other systems reviewed and are negative Yes all other systems are reviewed and are negative FOR[facility]LY [facility] Past Medical History Attestation statement: The following information was validated with the patient. Source: old records reviewed and nursing notes reviewed Medical History Cyst near coccyx Lumbar disc disease Nasal septum fracture Opiate use Right wrist drop Surgical History History of inguinal hernia repair History of lumbar fusion History of open reduction and internal fixation (ORIF) procedure History of ventral hernia repair Family History Family History Father Leukemia Mother CHF (congestive heart failure) Hypertension H/O ETOH abuse Substance use disorder Sister Diabetes Pancreatitis Substance use disorder Daughter In good health Son No problems noted. Other Mental health disorder Social History Social History Household Members: Other Household Members Other:: Aunt Housing: House Do you presently have visiting nurse or other home services: No Alcohol intake: current Alcohol intake frequency: holidays/special occasions only Patient Tobacco Use Status: Current everyday Tobacco user Tobacco use type: Cigarette Cigarettes Per Day: 10 Years Smoked: 33 e-Cigarette/Vaping Use: Former Use Second Hand Smoke Exposure: Yes Substance Use Type: Crack/Cocaine and Heroin Advance Directives: No Advance Directives Information Provided: No service: No Current occupational status: disabled Cognitive needs: No Hearing needs: No Vision needs: No Physical Exam Vital Signs: Vital Signs: Last Vital Signs Temp 97.2 F 10/23/21 21:46 Pulse 84 10/23/21 21:46 Resp 18 10/23/21 21:46 BP 137/88 10/23/21 21:46 Pulse Ox 98 10/23/21 21:46 O2 Del Method 10/23/21 21:46 BMI result Body Mass Index 32.5 VSS Appearance: Alert.? Oriented X3.? No acute distress.? Patient is speaking rapidly appears to be anxious, very paranoid Head: Normocephalic, atraumatic, no step-offs or deformities Eyes: Pupils equal, round and reactive to light.?Dilated pupils b/l ENT: Pharynx normal.? Neck: Normal inspection.? Neck supple.? CVS: Normal heart rate and rhythm.? Pulses normal.? Respiratory: No respiratory distress.? Breath sounds normal.? Abdomen: Soft and nontender.? Skin: Skin warm and dry.? Normal skin color.? Normal skin turgor.? Extremities: No lower extremity edema.? No calf ttp. 5/5 strength to bilateral upper and lower extremities Neuro: Oriented X 3.? No motor deficit.? No sensory deficit. CN 2-12 intact Course Reevaluation(s) Reevaluation #1: CBC within normal limits. Chemistry with no acute findings. UA without abnormalities. Patient toxicology positive for opiates, fentanyl, cocaine. Negative salicylates, acetaminophen and ethanol. COVID negative. At this time patient will be placed in physician observation. Patient was seen earlier today by the care team however they will re-evaluate him tomorrow morning. Vital signs stable, patient common cooperative. Will continue to monitor. Time: 00:29 MDM - Psych MDM Narrative Medical decision making narrative: 2234 50-year-old male presents with acute paranoia, thinking his aunt is poisoning him with cleaner and putting it in his cereal and food tells me he feels anxious Physical examination with patient speaking rapidly, unable to stay still, appears anxious, rest of physical examination benign Likely paranoia or schizophrenia. Plan at this time is medical clearance and evaluation by the behavioral health team. Medical Records Attestation: I reviewed the patient's medical records. Lab Data Attestation: I reviewed the patient's lab results. Result diagrams: 10/23/21 22:35 10/23/21 22:35 Labs: Lab Results 10/23/21 10/23/21 10/23/21 Range/Units 20:01 20:01 21:45 WBC (4.8-10.8) X10*3/uL RBC (4.60-5.80) X10*6/uL Hgb (14.0-18.0) g/dl Hct (42.0-52.0) % MCV (80.0-98.0) fL MCH (27.0-33.0) pg MCHC (31.0-36.0) g/dl RDW (11.0-16.0) % Plt Count (160-400) X10*3/uL MPV (9.4-12.4) fL Immature Gran % (Auto) (0.0-0.4) % Neut % (Auto) (45-73) % Lymph % (Auto) (20-40) % Stephenson % (Auto) (2-11) % Eos % (Auto) (0-4) % Baso % (Auto) (0-2) % Lymph # (Auto) (1.2-4.9) X10*3/uL Stephenson # (Auto) (0.1-1.2) X10*3/uL Eos # (Auto) (0.0-0.4) X10*3/uL Baso # (Auto) (0.0-0.2) X10*3/uL Abs Immat Gran (auto) (0.00-0.03) X10*3/uL Absolute Neuts (auto) (2.0-8.3) x10*3/uL Absolute Nucleated RBC (0.0-0.012) X10*3/uL Nucleated RBC % (auto) (0.0-0.2) /100WBC Sodium (135-145) mmol/L Potassium (3.3-5.1) mmol/L Chloride (96-108) mmol/L Carbon Dioxide (22-29) mmol/L Anion Gap (12-20) BUN (9-16) mg/dL Creatinine (0.5-1.4) mg/dL Estim Creat Clear Calc Estimated GFR Random Glucose (60-115) mg/dL Calcium (8.4-10.2) mg/dL Total Bilirubin (0.0-1.0) mg/dL Direct Bilirubin (0.0-0.5) mg/dL AST (5-37) U/L ALT (0-40) U/L Alkaline Phosphatase (39-117) U/L Total Protein (6.5-8.0) g/dL Albumin (3.5-5.0) g/dL Urine Color YELLOW Urine Appearance CLEAR Urine pH 6.0 (5.0-8.0) Ur Specific Benedict >= 1.030 H (1.005-1.025) Urine Protein TRACE (NEG-TRACE) MG/DL Urine Glucose (UA) NEG (NEG) MG/DL Urine Ketones 15 (NEG) MG/DL Urine Blood NEG (NEG) Urine Nitrite NEG (NEG) Ur Leukocyte Esterase NEG (NEG) Salicylates (15-30) mg/dL Urine Opiates Screen POSITIVE H (Not Detect) Urine Fentanyl Screen POSITIVE H (Not Detect) Acetaminophen (<30) mcg/mL Ur Barbiturates Screen Not Detected (Not Detect) Ur Phencyclidine Scrn Not Detected (Not Detect) Ur Amphetamines Screen Not Detected (Not Detect) Urine Cocaine Screen POSITIVE H (Not Detect) U Marijuana (THC) Screen Not Detected (Not Detect) Ethyl Alcohol mg/dL COVID-19 (GABRIEL) Negative (Negative) COVID-19 Clin Com See Note 10/23/21 10/23/21 10/23/21 Range/Units 22:35 22:35 22:35 WBC 10.2 (4.8-10.8) X10*3/uL RBC 4.88 (4.60-5.80) X10*6/uL Hgb 14.8 (14.0-18.0) g/dl Hct 45.2 (42.0-52.0) % MCV 92.6 (80.0-98.0) fL MCH 30.3 (27.0-33.0) pg MCHC 32.7 (31.0-36.0) g/dl RDW 14.2 (11.0-16.0) % Plt Count 278 (160-400) X10*3/uL MPV 10.2 (9.4-12.4) fL Immature Gran % (Auto) 0.2 (0.0-0.4) % Neut % (Auto) 66.9 (45-73) % Lymph % (Auto) 22.8 (20-40) % Stephenson % (Auto) 8.5 (2-11) % Eos % (Auto) 1.0 (0-4) % Baso % (Auto) 0.6 (0-2) % Lymph # (Auto) 2.3 (1.2-4.9) X10*3/uL Stephenson # (Auto) 0.9 (0.1-1.2) X10*3/uL Eos # (Auto) 0.1 (0.0-0.4) X10*3/uL Baso # (Auto) 0.1 (0.0-0.2) X10*3/uL Abs Immat Gran (auto) 0.02 (0.00-0.03) X10*3/uL Absolute Neuts (auto) 6.8 (2.0-8.3) x10*3/uL Absolute Nucleated RBC 0.000 (0.0-0.012) X10*3/uL Nucleated RBC % (auto) 0.0 (0.0-0.2) /100WBC Sodium 139 (135-145) mmol/L Potassium 4.3 (3.3-5.1) mmol/L Chloride 105 (96-108) mmol/L Carbon Dioxide 22 (22-29) mmol/L Anion Gap 16 (12-20) BUN 18 H (9-16) mg/dL Creatinine 1.24 (0.5-1.4) mg/dL Estim Creat Clear Calc 91.8 Estimated GFR > 60 Random Glucose 91 (60-115) mg/dL Calcium 9.7 (8.4-10.2) mg/dL Total Bilirubin 0.3 (0.0-1.0) mg/dL Direct Bilirubin (0.0-0.5) mg/dL AST 17 (5-37) U/L ALT 15 (0-40) U/L Alkaline Phosphatase 90 (39-117) U/L Total Protein 7.6 (6.5-8.0) g/dL Albumin 4.5 (3.5-5.0) g/dL Urine Color Urine Appearance Urine pH (5.0-8.0) Ur Specific Benedict (1.005-1.025) Urine Protein (NEG-TRACE) MG/DL Urine Glucose (UA) (NEG) MG/DL Urine Ketones (NEG) MG/DL Urine Blood (NEG) Urine Nitrite (NEG) Ur Leukocyte Esterase (NEG) Salicylates < 5.0 L (15-30) mg/dL Urine Opiates Screen (Not Detect) Urine Fentanyl Screen (Not Detect) Acetaminophen < 1 (<30) mcg/mL Ur Barbiturates Screen (Not Detect) Ur Phencyclidine Scrn (Not Detect) Ur Amphetamines Screen (Not Detect) Urine Cocaine Screen (Not Detect) U Marijuana (THC) Screen (Not Detect) Ethyl Alcohol < 10 mg/dL COVID-19 (GABRIEL) (Negative) COVID-19 Clin Com 06/27/22 Range/Units 22:35 WBC (4.8-10.8) X10*3/uL RBC (4.60-5.80) X10*6/uL Hgb (14.0-18.0) g/dl Hct (42.0-52.0) % MCV (80.0-98.0) fL MCH (27.0-33.0) pg MCHC (31.0-36.0) g/dl RDW (11.0-16.0) % Plt Count (160-400) X10*3/uL MPV (9.4-12.4) fL Immature Gran % (Auto) (0.0-0.4) % Neut % (Auto) (45-73) % Lymph % (Auto) (20-40) % Stephenson % (Auto) (2-11) % Eos % (Auto) (0-4) % Baso % (Auto) (0-2) % Lymph # (Auto) (1.2-4.9) X10*3/uL Stephenson # (Auto) (0.1-1.2) X10*3/uL Eos # (Auto) (0.0-0.4) X10*3/uL Baso # (Auto) (0.0-0.2) X10*3/uL Abs Immat Gran (auto) (0.00-0.03) X10*3/uL Absolute Neuts (auto) (2.0-8.3) x10*3/uL Absolute Nucleated RBC (0.0-0.012) X10*3/uL Nucleated RBC % (auto) (0.0-0.2) /100WBC Sodium (135-145) mmol/L Potassium (3.3-5.1) mmol/L Chloride (96-108) mmol/L Carbon Dioxide (22-29) mmol/L Anion Gap (12-20) BUN (9-16) mg/dL Creatinine (0.5-1.4) mg/dL Estim Creat Clear Calc Estimated GFR Random Glucose (60-115) mg/dL Calcium (8.4-10.2) mg/dL Total Bilirubin 0.3 (0.0-1.0) mg/dL Direct Bilirubin < 0.2 (0.0-0.5) mg/dL AST 20 (5-37) U/L ALT 16 (0-40) U/L Alkaline Phosphatase 92 (39-117) U/L Total Protein 7.7 (6.5-8.0) g/dL Albumin 4.5 (3.5-5.0) g/dL Urine Color Urine Appearance Urine pH (5.0-8.0) Ur Specific Benedict (1.005-1.025) Urine Protein (NEG-TRACE) MG/DL Urine Glucose (UA) (NEG) MG/DL Urine Ketones (NEG) MG/DL Urine Blood (NEG) Urine Nitrite (NEG) Ur Leukocyte Esterase (NEG) Salicylates (15-30) mg/dL Urine Opiates Screen (Not Detect) Urine Fentanyl Screen (Not Detect) Acetaminophen (<30) mcg/mL Ur Barbiturates Screen (Not Detect) Ur Phencyclidine Scrn (Not Detect) Ur Amphetamines Screen (Not Detect) Urine Cocaine Screen (Not Detect) U Marijuana (THC) Screen (Not Detect) Ethyl Alcohol mg/dL COVID-19 (GABRIEL) (Negative) COVID-19 Clin Com Critical Care Time Critical Care Time Critical Care Time: No Discharge Plan Discharge Clinical Impression: Acute paranoia, Polysubstance abuse Patient Disposition: Still a Patient Prescriptions: No Action gabapentin 300 mg capsule 300 mg PO TID 30 Days Qty: 90 0RF Eliquis 5 mg tablet 5 mg PO BID 30 Days Qty: 60 3RF tizanidine 2 mg tablet 2 mg PO BEDTIME 30 Days Qty: 30 0RF methadone 10 mg/5 mL solution 121 mg PO DAILY Label Comments: Methadone Verification Form completed by this RN and scanned to Pharmacy 11/04/20 at 0905.
[2021-10-23 22:11] LABS: Fentanyl, urine POSITIVE (Not Detect)
[2021-10-23 22:16] LABS: Amphetamine Screen Urine Not Detected (Not Detect); Barbiturates, Urine Not Detected (Not Detect); Cannabinoid Screen Urine Not Detected (Not Detect); Cocaine Screen Urine POSITIVE (Not Detect); Opiate Screen Urine POSITIVE (Not Detect); Phencyclidine Screen Urine Not Detected (Not Detect)
[2021-10-23 22:40] LABS: MANUAL DIFF FLAG NO
[2021-10-23 22:41] LABS: COVID-19 Test Negative (Negative)
[2021-10-23 22:42] LABS: Basophils Absolute Auto 0.1 X10*3/uL (0.0-0.2); Basophils Percent Auto 0.6 % (0-2); Eosinophils Absolute Auto 0.1 X10*3/uL (0.0-0.4); Hematocrit 45.2 % (42.0-52.0); Hemoglobin 14.8 g/dl (14.0-18.0); Imm Gran Abs Auto 0.02 X10*3/uL (0.00-0.03); Imm Gran Pct Auto 0.2 % (0.0-0.4); Lymphocytes Absolute Auto 2.3 X10*3/uL (1.2-4.9); Lymphocytes Percent Auto 22.8 % (20-40); Mean Corpuscular HGB Conc 32.7 g/dl (31.0-36.0); Mean Corpuscular Hemoglobin 30.3 pg (27.0-33.0); Mean Corpuscular Volume 92.6 fL (80.0-98.0); Mean Platelet Volume 10.2 fL (9.4-12.4); Monocytes Absolute Auto 0.9 X10*3/uL (0.1-1.2); Monocytes Percent Auto 8.5 % (2-11); Neutrophils Absolute Auto 6.8 x10*3/uL (2.0-8.3); Neutrophils Percent Auto 66.9 % (45-73); Platelet Count 278 X10*3/uL (160-400); Red Blood Count 4.88 X10*6/uL (4.60-5.80); Red Cell Distribution Width 14.2 % (11.0-16.0); White Blood Count 10.2 X10*3/uL (4.8-10.8)
[2021-10-23 22:53] LABS: Ethanol < 10 mg/dL
[2021-10-23 22:57] LABS: Acetaminophen LAB < 1 mcg/mL (<30); Alanine Aminotransferase 15 U/L (0-40); Albumin Level 4.5 g/dL (3.5-5.0); Alkaline Phosphatase 90 U/L (39-117); Anion Gap 16 (12-20); Aspartate Amino Transferase 17 U/L (5-37); Bilirubin Total 0.3 mg/dL (0.0-1.0); Blood Urea Nitrogen 18 mg/dL (9-16); Calcium 9.7 mg/dL (8.4-10.2); Carbon Dioxide 22 mmol/L (22-29); Chloride 105 mmol/L (96-108); Creatinine Clr Calc Pharmacy 91.8; Estimated Glomerular Filt Rate > 60; Glucose Random 91 mg/dL (60-115); Potassium 4.3 mmol/L (3.3-5.1); Salicylate < 5.0 mg/dL (15-30); Sodium 139 mmol/L (135-145); Total Protein 7.6 g/dL (6.5-8.0)
[2021-10-23 23:00] LABS: Alanine Aminotransferase 16 U/L (0-40); Albumin Level 4.5 g/dL (3.5-5.0); Alkaline Phosphatase 92 U/L (39-117); Aspartate Amino Transferase 20 U/L (5-37); Bilirubin Direct < 0.2 mg/dL (0.0-0.5); Bilirubin Total 0.3 mg/dL (0.0-1.0); Total Protein 7.7 g/dL (6.5-8.0)
--- NOTE | 2021-10-23 23:59 | MHC.CARE ---
CARE team met with pt to assess pt's level of risk for potential harm to self or others. Pt self presented to the ED endorsing burning sensations throughout his body and believes that he is being poisoned by the woman he lives with (ex 's aunt). He has been medically cleared and referred for a mental health evaluation. Pt's urine tox screen was positive for fentanyl, opiates, and cocaine. Pt was seen in the pod room 3. He was alert and oriented, hygiene and grooming were unremarkable, and he was dressed in hospital attire. His eye contact was appropriate and his speech was loud at times, which he would realize and then try to moderate his volume. He denied SI/HI/AVH and did not appear to be responding to internal stimuli. He stated that he knows he might not be getting poisoned but doesn't understand why he's feeling like his insides are burning, and that he is open to whatever anyone thinks it could or could not be. He shared with this junior copywriter that this morning he had cereal and coffee, both with milk, and the he started to feel the burning sensation on his face, throat, and chest after he started eating and drinking. He reported that he looked at the milk and that the jug looked bluish, and that he checked the date to make sure it wasn't , then he started to worry. He said that he felt that his skin was burning, thinking that he may be sweating out poison through his pores, and that it was burning when he urinated. He contacted his adult son and daughter, both of whom work in some aspect of healthcare, and they suggested that it could be a psychiatric issue or something related to the substances he has been using and recommended that he come to the hospital. Pt reported that he has primarily been using IV cocaine but has also been using IV opiates and fentanyl to help with the come down after using cocaine, often combining the substances and using them simultaneously (ayad delvalle). He reported that his last use was on Saturday, and that he also drank a significant amount of gin and red bull energy drinks while at a family Father's Day green party. He shared that he is on methadone through [facility] and that he has been tapering his dose down, currently receiving 118mg daily. This junior copywriter discussed with pt that it may not be wilson for his dose to be tapered if he is struggling to abstain from use. He reported that he has a good relationship with his counselor, Sung, at [facility] and will talk with him about his ongoing use. CARE team recommendation is that pt be kept overnight for observation and a follow up mental status evaluation in the morning. ED provider and nurse are aware.
[2021-10-24 00:46] VITALS: BP 111/61; PULSE 72; RESP 16; TEMP 36.4; O2SAT 97
--- NOTE | 2021-10-24 05:03 | PC.NURSE ---
Patient slept through the night, no distress observed/reported, patient was assessed by care team, disposition pending/ISRAEL follow up by care team in the morning, med rec completed/pending provider's approval, vss, behavior appropriate and non concerning, will continue to monitor.
--- NOTE | 2021-10-24 07:23 | PC.NURSE ---
patient appers to remain at rest at present, observed headed to restroom within the last hour, respirations are even and unlabored patint appeawrs in no distress
[2021-10-24] MEDS: Gabapentin 300 MG CAPSULE PO (08:44)
[2021-10-24] MEDS: Apixaban 5 MG TABLET PO (08:44)
[2021-10-24] MEDS: methADONE HCl 20 MG/2 ML ORAL.CONC 120 MG PO (08:44)
--- NOTE | 2021-10-24 11:00 | MHC.CARE ---
Pt is alert and oriented x4 and is re assessed for risk in his room in the behavioral health pod of the ED.? Pt appears neat and well groomed, his speech and eye contact are unremarkable, he is actively engaged in the conversation and expresses a desire to be discharged.? Pt reports good sleep and appetite, his mood is described as ?good? and he is looking forward to a ?real cup of coffee?.? Pt demonstrates a full range of affect.? He denies AH, HI, SI, , and self-harm urges, he denies any hx of such.? He does not appear delusional or experiencing symptoms of psychosis.? Pt stated that yesterday he was paranoid, feeling as though he was being poisoned by his Aunt, who he lives with.? Pt states that he acts in a child care attendant like fashion for his aunt, cooking meals, helping around the house, and providing companionship.? When asked why he would think she has poisoned him, he could not effectively state any reason.? Pt believes that his symptoms may have been the result of the substance use, suggesting that he had ?Gotten a hold of a bad batch.?? He reports a recent relapse after a lengthy period of sobriety. Pt does not appear to be at risk.? Plan is for pt to be discharged home; this plan was discussed with and agreed upon by CARE Strap Maker Ole ROWE, ED provider Trae, and pt?s nurse LOVE Gomez.
[2021-10-25 07:03] LABS: Benzodiazepines Screen Urine Not Detected (Not Detect)
== END 2021-10-24 10:26 | disposition home or self-care (01) ==
PROVIDERS: Physician Assistant; Emergency Provider Internal Medicine; PCP Physician Assistant
DX: F22 Delusional disorders (principal); F11.10 Opioid abuse, uncomplicated; F14.10 Cocaine abuse, uncomplicated; F41.1 Generalized anxiety disorder; F43.0 Acute stress reaction; F17.210 Nicotine dependence, cigarettes, uncomplicated; Z20.822 Contact with and (suspected) exposure to COVID-19; Z79.899 Other long term (current) drug therapy; Z71.6 Tobacco abuse counseling
CPT/HCPCS: 36415; 80053; 80076; 80143; 80179; 80307; 81003; 82077; 82248; 85025; 87635; 93005; 99284

== ENCOUNTER 2023-03-27 13:36 | Outpatient (AMB) | payer MEDICARE, SELFPAY ==
--- NOTE | 2023-03-27 13:49 | A.OFFPC_ITS ---
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 Required: No Accompanied by: Self / Same As Patient Allergies No Known Allergies Allergy (Mild, Verified 03/27/23 13:58) N/A Medication List - Last Reconciled 03/27/23 by Yakov Escudero PA-C amoxicillin 500 mg PO Q8H 7 days apixaban (Eliquis) 5 mg PO BID 30 days gabapentin 300 mg PO TID 30 days methadone 138 mg PO DAILY tizanidine 2 mg PO BEDTIME 30 days Tobacco use date assessed: 03/27/23 Dental Screening Dental Screen Date: 03/27/23 Did you have a dental visit in the last 12 months?: Yes Did you have a dental problem in the last 6 months where you did not have access to dental care?: No Was dental information given to patient?: Patient has dentist HPI Annual Physical HPI Details Patient is a 52 year-old male here today for an annual physical. 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 Concern--> continues to feel that he has a parasite in his skin as he reports he feels them crawling on his face and on his body. He has been seeing at this has been a finding for many years now. No clear evidence has ever been found. Most likely side effect of his methadone .. Opiate dependency: Continues on methadone through a local methadone clinic. He reports he has been for the most part sober from street drugs for the last several years. He does admit to some relapses from time to time. Pulmonary embolism: Continues on Eliquis 5 mg b.i.d. without any overt signs of bleeding. .. Concerns--> reports he has been little bit more depressed and anxious as of late. He is interested in trying medication as needed for anxiety. Did discuss not habit-forming as needed anxiety medication with patient today in office Lumbar disc disease: Patient does have a history L5-S1 lumbar vertebrae Jaay fusion. He continues to have lumbar spine pain with some radiculopathy into his right lower extremity. He is interested in seeing pain management for further pain reduction modalities. Currently uses gabapentin on a p.r.n. basis for his pain. Vaccines: UTD with Tdap , declines COVID vaccine Colon cancer screening: Had a colonoscopy at [facility]. Has cologaurd at home he has yet to do. Laboratory Tests 11/04/20 01:00 Urine Opiates Scre en POSITIVE H Urine Cocaine Scre en POSITIVE H PFSH Medical History Polysubstance dependence including opioid type drug, episodic abuse Nasal septum fracture Cyst near coccyx Opiate use Right wrist drop Lumbar disc disease Surgical History History of lumbar fusion History of open reduction and internal fixation (ORIF) procedure History of ventral hernia repair History of inguinal hernia repair Family History Father Leukemia Mother CHF (congestive heart failure) Hypertension H/O ETOH abuse Substance use disorder Sister Diabetes Pancreatitis Substance use disorder Daughter In good health Son No problems noted. Other Mental health disorder Social History (Updated 03/27/23 @ 14:09 by Yakov Escudero PA-C) Household Members: Other Household Members Other:: Aunt Housing: House Do you presently have visiting nurse or other home services: No Alcohol intake: current Alcohol intake frequency: holidays/special occasions only Comment: patient drinks responsibly Patient Tobacco Use Status: Current everyday Tobacco user Tobacco use type: Cigarette Cigarettes Per Day: 10 Years Smoked: 33 e-Cigarette/Vaping Use: Former Use Second Hand Smoke Exposure: Yes Substance Use Type: Crack/Cocaine and Heroin service: No Current occupational status: disabled Cognitive needs: No Hearing needs: No Vision needs: No Questionnaire PHQ-9 Over the last 2 weeks, how often have you been bothered by any of the following problems? 1. Little interest or pleasure in doing things: not at all 2. Feeling down, depressed, or hopeless: not at all 3. Trouble falling or staying asleep, or sleeping too much: not at all 4. Feeling tired or having little energy: not at all 5. Poor appetite or overeating: not at all 6. Feeling bad about yourself - or that you are a failure or have let yourself or your family down: not at all 7. Trouble concentrating on things, such as reading the newspaper or watching television: not at all 8. Moving or speaking so slowly that other people could have noticed. Or the opposite - being so fidgety or restless that you have been moving around a lot more than usual: not at all 9. Thoughts that you would be better off or of hurting yourself in some way: not at all Total score: 0 Depression Screening Interpretation: Negative Depression Screening Done: Yes 10265 - PHQ-9 Billing: Yes Source: Developed by Drs. Jeffy Cordero, Jackeline Hurd, Godfrey Chandler and colleagues, with an educational ranjeet from [employer]. Thrive Questionnaire Date Thrive assessed: 03/27/23 I am a: Patient What is your living situation today?: I have a steady place to live Within the past 12 months, did the food you bought not last and you didn't have the money to get more?: Never true Within the past 12 months, did you worry whether your food would run out before you got money to buy more?: Never true Do you have trouble paying for medicines?: No Do you have trouble getting transportation to medical appointments?: No Do you have trouble paying your heating and electricity bill?: No Do you have trouble taking care of your child, family member or friend?: No Do you have trouble with day-to-day activities such as bathing, preparing meals, shopping, managing finances, etc.?: No Are you currently unemployed and looking for a job?: No Are you interested in more education?: No Please select the resources that you would like help with: None Currently or been in a relationship where the following occur: no concerns reported AUDIT C Alcohol Use Questionnaire (AUDIT-C) 1. How often do you have a drink containing alcohol?: 2-4 times a month 2. How many drinks containing alcohol do you have on a typical day when you are drinking?: 1 or 2 3. How often do you have six or more drinks on one occasion?: Never Total Score: 2 Score Reviewed/Action Taken: Yes MIRIAN-7 AMB Questionnaire MIRIAN-7 Date MIRIAN - 7 assessed: 03/27/23 Feeling nervous, anxious, or on edge: 0 = Not at all Not being able to stop or control worryin = Not at all Worrying too much about different things: 0 = Not at all Trouble relaxin = Not at all Being so restless that it is hard to sit still: 0 = Not at all Becoming easily annoyed or irritable: 0 = Not at all Feeling afraid as if something awful might happen: 0 = Not at all Total MIRIAN-7 score (0-4 normal; 5-9 mild; 10-14 moderate; 15-21 severe): 0 Source: Developed by Drs. Jeffy Cordero, Jackeline Hurd, Godfrey Chandler and colleagues, with an educational ranjeet from [employer]. MIRIAN-7 Assessment Billing MIRIAN-7 Assessment Tool: MIRIAN-7 Assessment 22422 Review of Systems Const Denies body aches, Denies chills, Denies excessive sweating, Denies fatigue, Denies fever(s) and Denies headache(s) Eyes Denies blurry vision ENT Denies dysphagia, Denies vertigo, Denies dizziness, Denies headache(s), Denies hearing loss and Denies tinnitus Card Denies chest pain, Denies chest pain with activity, Denies syncope, Denies irregular heart rhythm and Denies dyspnea Resp Denies chest congestion, Denies cough, Denies hemoptysis, Denies dyspnea and Denies wheezing GI Denies abdominal pain, Denies melena, Denies hematochezia, Denies coffee ground emesis, Denies dysphagia, Denies diarrhea, Denies nausea and Denies vomiting Denies difficulty urinating, Denies dysuria, Denies urinary frequency, Denies urinary hesitancy and Denies urinary urgency Musc Denies arthralgias, Denies limited range of motion, Denies muscle cramps and Denies muscle weakness Skin/Breast Denies rash and Denies skin ulcer Neuro Denies Abnormal speech present, Denies confusion, Denies vertigo, Denies dizziness, Denies syncope, Denies headache(s), Denies memory loss and Denies seizure-like activity Psych Denies anxiety, Denies confusion, Denies depression, Denies memory loss, Denies panic attacks and Denies paranoia Endo Denies excessive sweating, Denies fatigue, Denies flushing, Denies polydipsia and Denies polyuria Aller/Immun Denies wheezing Physical exam (Primary Care) Vital Signs: Last Vital Signs Pulse 110 H 03/27/23 13:50 BP 126/72 03/27/23 13:50 Pulse Ox 98 03/27/23 13:50 Oxygen Delivery Method Room Air 03/27/23 13:50 BMI result Body Mass Index 31.1 BMI Assessment/Plan discussion: High Tobacco/Smoking Status: Tobacco use Status Tobacco use date assessed 03/27/23 03/27/23 13:56 Patient Tobacco Use Status Current everyday Tobacco 03/27/23 14:09 Tobacco use type Cigarette 03/27/23 14:09 e-Cigarette/Vaping Use Former Use 03/27/23 14:09 PHQ-9: PHQ-9 Score PHQ-9: Total score 0 03/27/23 13:59 Depression Screening Interpretation: Negative Thrive Assessment: Date of Thrive Assessment Date Thrive assessed 03/27/23 03/27/23 13:56 Currently or been in a relationship where the following occur: no concerns reported Const Other: Obese General: cooperative, comfortable, no acute distress, alert and awake; No confusion Orientation/consciousness: oriented to person, oriented to place, patient oriented x3 and No confusion HENMT Head: Yes normocephalic Ears: external ears normal and TM's normal bilaterally Face and sinus: No sinus tenderness Mouth: Normal oral and palatal mucosa present and tongue normal Teeth and gingiva: dentition normal and gingiva normal Throat: Yes posterior oropharynx normal, Yes tonsils normal and Yes uvula midline Eyes Conjunctivae: conjunctivae normal Sclerae: sclerae normal Pupils: Equal, round and reactive pupils present EOM: EOMs intact bilaterally Direct Ophthalmoscopy: No no photophobia Neck Neck: Yes no lymphadenopathy, No tender and Yes no JVD Thyroid: Thyroid normal Carotids: no bruits Chest Chest palpation & inspection: no tenderness Resp Effort & Inspection: normal respiratory effort, no audible wheezes, not labored and no stridor Auscultation: no crackles, no rales, no rhonchi and no wheezes Cardio Jugular venous distension: no JVD Rate: regular rate, not bradycardic and not tachycardic Rhythm: regular rhythm Bruits: no carotid bruits Peripheral pulses: Peripheral pulses 2+ throughout GI Inspection: Yes normal to inspection, No abdominal wall ecchymosis and No visible herniation Palpation (GI): Soft to palpation, nontender, no guarding, not rigid and No hepatosplenomegaly present Auscultation: normoactive bowel sounds General: Yes no CVA tenderness Back/Spine/Pelvis Back: no CVA tenderness and No back tenderness Cervical Spine: cervical ROM normal Thoracic/Lumbar Spine: thoracic and lumbar spine normal to inspection, straight leg raise negative bilaterally, No thoraco-lumbar ROM limited and No lumbar spinal tenderness Skin Lesions: no lesions Rashes: no rashes Wounds: no wounds Neuro General: oriented to person, oriented to place, patient oriented x3, CN's II-XI intact bilaterally and No confusion Cranial nerves: Yes Equal, round and reactive pupils present and Yes Normal accommodation reflex present Cognition (Neuro): normal cognition Speech: No Abnormal speech present Gait exam (Neuro): Normal gait present Motor exam (neuro): 5/5 motor strength present throughout Extrem Right upper extremity: full ROM; no cyanosis Left upper extremity: full ROM; no cyanosis Right lower extremity: no edema Left lower extremity: no edema Psych Appearance: grossly normal Mental Status: mental status grossly normal Affect: normal affect Attitude: cooperative Thought process: Normal thought process present Assessment and Plan Assessment & Plan (1) Annual physical exam: Code(s): Z00.00 - Encounter for general adult medical examination without abnormal findings (2) Pulmonary emboli: Code(s): I26.99 - Other pulmonary embolism without acute cor pulmonale Qualifiers: Acute cor pulmonale presence: with acute cor pulmonale Chronicity: acute Pulmonary embolism type: other Qualified Code(s): I26.09 - Other pulmonary embolism with acute cor pulmonale Plan: Continues on Eliquis 5 mg b.i.d. indefinitely due to his history of DVT and pulmonary emboli.. He otherwise denies any overt signs of bleeding. (3) Obese: Code(s): E66.9 - Obesity, unspecified Qualifiers: Body mass index: BMI 32.0-32.9 Obesity classification: adult class 1 (BMI 30 - 34.9) Obesity type: due to excess calories Serious obesity comorbidity presence: without serious comorbidity Qualified Code(s): E66.09 - Other obesity due to excess calories; Z68.32 - Body mass index [BMI] 32.0-32.9, adult Plan: Patient does understand his BMI is over 30 will work on being more physically active and adapting to better eating habits to reduce his weight (4) Tobacco use disorder: Code(s): F17.200 - Nicotine dependence, unspecified, uncomplicated Plan: Patient does understand he needs to quit smoking. Difficult to do so due to his anxiety and depression. He does use smoking as a stress reliever. Offered him nicotine replacement though declines at this time. He will try to wean down his cigarette smoking. (5) Opiate dependence: Code(s): F11.20 - Opioid dependence, uncomplicated Qualifiers: Substance use status: in remission Qualified Code(s): F11.21 - Opioid dependence, in remission Plan: Continues on methadone. Has been generally sober from street drugs over the last few years. He plans on weaning off of methadone slowly. (6) MIRIAN (generalized anxiety disorder): Code(s): F41.1 - Generalized anxiety disorder Plan: He does report having increased anxiety. Has tried many different anxiety m edications in the past though reports side effects. Did offer him non habit-forming p.r.n. medication for anxiety. We did discuss the possible need to start SSRI therapy, discussed starting fluoxetine to which his sister is on getting good relief from. (7) Insomnia: Code(s): G47.00 - Insomnia, unspecified Qualifiers: Insomnia type: primary Qualified Code(s): F51.01 - Primary insomnia Plan: Continues to have trouble sleeping. Has tried different medication for sleep such as NyQuil, Benadryl, melatonin, trazodone all without effectiveness and with side effects. (8) Screening for diabetes mellitus (DM): Code(s): Z13.1 - Encounter for screening for diabetes mellitus Coding Level of Care Code Est Pt Prev Care 40-64y(97247) Diagnoses Annual physical exam Z00.00 Other acute pulmonary embolism with acute cor pulmonale I26.09 Acute cor pulmonale presence: with acute cor pulmonale Chronicity: acute Pulmonary embolism type: other Class 1 obesity due to excess calories without serious comorbidity with body mass index (BMI) of 32.0 to 32.9 in adult E66.09; Z68.32 Body mass index: BMI 32.0-32.9 Obesity classification: adult class 1 (BMI 30 - 34.9) Obesity type: due to excess calories Serious obesity comorbidity presence: without serious comorbidity Tobacco use disorder F17.200 Opioid dependence in remission F11.21 Substance use status: in remission MIRIAN (generalized anxiety disorder) F41.1 Primary insomnia F51.01 Insomnia type: primary Screening for diabetes mellitus (DM) Z13.1 Additional Codes MIRIAN-7 Assessment Billing - MIRIAN-7 Assessment Tool: MIRIAN-7 Assessment 54923 ([id number])
[2023-03-27 13:50] VITALS: BP 126/72; PULSE 110; O2SAT 98; BMI 31.1
== END 2023-03-27 14:41 | disposition home or self-care (01) ==
PROVIDERS: Visit Provider Physician Assistant
DX: Z00.00 Encounter for general adult medical examination without abnormal findings (principal); I26.09 Other pulmonary embolism with acute cor pulmonale; F11.21 Opioid dependence, in remission; E66.09 Other obesity due to excess calories; Z68.32 Body mass index [BMI] 32.0-32.9, adult; F17.210 Nicotine dependence, cigarettes, uncomplicated; F41.1 Generalized anxiety disorder; F51.01 Primary insomnia; Z13.1 Encounter for screening for diabetes mellitus
CPT/HCPCS: 99396

== ENCOUNTER 2023-05-05 20:07 | Emergency (ER) | payer MEDICARE, MEDICAID, SELFPAY ==
[2023-05-05 20:12] VITALS: BP 123/85; PULSE 105; RESP 18; TEMP 37.2; O2SAT 94; BMI 30.3
[2023-05-05 21:48] VITALS: BP 126/80; PULSE 95; RESP 15; TEMP 37.1; O2SAT 94
--- NOTE | 2023-05-05 22:19 | ED.GENADULT ---
HPI - General Adult General Chief complaint: General Medical Stated complaint: sob, chest congestion Time Seen by Provider: 05/05/23 20:57 Source: patient Mode of arrival: ambulatory History of Present Illness HPI narrative: 52M who presents with complaints of shortness of breath and states that he has plans to have his teeth removed tomorrow, he is an everyday smoker but denies any fever, chills, nausea, vomiting. Related Data Home Medications Medication Instructions Recorded Confirmed methadone 10 mg/5 mL oral solution 138 mg PO DAILY 03/27/23 03/27/23 Previous Rx's Medication Instructions Recorded tizanidine 2 mg tablet 2 mg PO BEDTIME muscle spasticity 01/15/23 30 days #30 tabs amoxicillin 500 mg capsule 500 mg PO Q8H 7 days #21 caps 02/13/23 apixaban 5 mg tablet (Eliquis) 5 mg PO BID 30 days #60 tabs 04/09/23 gabapentin 300 mg capsule 300 mg PO TID 30 days #90 caps 04/09/23 Allergies Allergy/AdvReac Type Severity Reaction Status Date / Time No Known Allergies Allergy Mild N/A Verified 03/27/23 13:58 Review of Systems Review of Systems: Pertinent positives and negatives as stated in HPI [facility] Past Medical History Source: nursing notes reviewed Onset Date is defined in the Problem List Problems that require an onset date and time if occurred within 24 hrs of arrival to the ED Aortic Dissection and Rupture; Neurologic impairment; Cardiopulmonary Arrest; Endotracheal Intubation; Insertion or Replacement of Mechanical Circulatory Assist Device Medical History Polysubstance dependence including opioid type drug, episodic abuse Nasal septum fracture Cyst near coccyx Opiate use Right wrist drop Lumbar disc disease Surgical History History of lumbar fusion History of open reduction and internal fixation (ORIF) procedure History of ventral hernia repair History of inguinal hernia repair Family History Family History Father Leukemia Mother CHF (congestive heart failure) Hypertension H/O ETOH abuse Substance use disorder Sister Diabetes Pancreatitis Substance use disorder Daughter In good health Son No problems noted. Other Mental health disorder Social History Social History Household Members: Other Household Members Other:: Aunt Housing: House Do you presently have visiting nurse or other home services: No Alcohol intake: current Alcohol intake frequency: holidays/special occasions only Comment: patient drinks responsibly Patient Tobacco Use Status: Current everyday Tobacco user Tobacco use type: Cigarette Cigarettes Per Day: 10 Years Smoked: 33 Smoked in Last 30 Days: Yes e-Cigarette/Vaping Use: Former Use Second Hand Smoke Exposure: Yes Use of substances other than those prescribed or required for medical reasons: Yes Substance Use Type: Crack/Cocaine Advance Directives: No Advance Directives Information Provided: No service: No Current occupational status: disabled Cognitive needs: No Hearing needs: No Vision needs: No Physical Exam ED Vital Signs: Vital Signs - 24 hr 05/05/23 20:12 05/05/23 21:48 Temperature 98.9 F 98.7 F Pulse Rate 105 H 95 Respiratory Rate 18 15 Blood Pressure 123/85 126/80 Pulse Oximetry 94 94 Oxygen Delivery Method Room Air Room Air BMI result Body Mass Index 30.3 VITAL SIGNS: Reviewed. GENERAL: Well developed, well nourished, in no acute distress. HEAD: Normocephalic/atraumatic EYES: PERRLA, EOMI EARS: Ext canals without abnormality NOSE: Nares patent bilateral OROPHARYNX: no oral lesions noted, posterior pharynx clear NECK: Supple, no adenopathy LUNGS: Noted tachypnea, coarse rhonchi that clears with coughing. SpO2<94> CARDIOVASCULAR: Regular rate and rhythm without noted murmurs ABDOMEN: Soft, non-tender, non-distended with bowel sounds. MUSCULOSKELETAL: No tenderness, deformities, or effusions noted on gross inspection. EXTREMITIES: No cyanosis, clubbing or edema. SKIN: Inspection of the skin reveals no rashes NEUROLOGIC: Alert and oriented x 4. Strength and sensation to light touch were grossly intact x 4. Medical Decision Making Medical Decision Making MDM Narrative: 52-year-old male with history and clinical presentation, DDX: Viral illness, bronchitis, low clinical suspicion for pneumonia. I reviewed all investigations viral testing is negative for RSV/COVID/influenza. Chest x-ray does not demonstrate infiltrate or venous congestion otherwise my interpretation is in agreement with radiology's impression. Patient is discharged with presumptive viral bronchitis. Differential Diagnosis Differential Diagnoses: The differential diagnosis associated with the presentation includes Please see the discussion above Admission/Observation Consideration of admission/observation: Escalation of care including admission/observation considered Please see the discussion above Lab Data MDM Lab Attestation statement: I reviewed the patient's lab results. Please see the discussion above Labs: Lab Results 05/05/23 Range/Units 20:19 Influenza Type A (PCR) NEGATIVE (Negative) Influenza Type B (PCR) NEGATIVE (Negative) RSV RNA Qual (PCR) NEGATIVE (Negative) SARS-CoV-2 RNA (RT-PCR) NEGATIVE (Negative) Radiology Impression Discussion of test interpretation with radiology: I have reviewed the radiologist's reading. Radiologist Impression: Please see the discussion above External Record Review External record reviewed: Outpatient record, Prior outpatient labs and Prior outpatient radiology Discharge Plan Discharge Clinical Impression: Bronchitis Patient Disposition: Home, Self-Care Instructions: Acute Bronchitis (ED) Additional Instructions: Please follow-up if you have any worsening of symptoms. Prescriptions: No Action tizanidine 2 mg tablet 2 mg PO BEDTIME 30 Days Qty: 30 5RF amoxicillin 500 mg capsule 500 mg PO Q8H 7 Days Qty: 21 0RF Eliquis 5 mg tablet 5 mg PO BID 30 Days Qty: 60 6RF gabapentin 300 mg capsule 300 mg PO TID 30 Days Qty: 90 6RF methadone 10 mg/5 mL solution 138 mg PO DAILY Patient Comments: Methadone Verification Form completed by this RN and scanned to Pharmacy 11/04/20 at 0905. Referrals: Yakov Escudero PA-C [Primary Care Provider] - Interventions: ED Discharge Assessment Last Done: 05/05/23 22:21 Discharge Date/Time: 05/05/23 22:26
--- NOTE | 2023-05-05 22:20 | PC.NURSE ---
pt ambulatory at discharge reports 4/10 pain. calm and cooperative. pt provided with discharge packet. pt verbalized understanding of discharge plan
== END 2023-05-05 22:26 | disposition home or self-care (01) ==
PROVIDERS: Emergency Provider Student in an Organized Health Care Education/Training Program; PCP Physician Assistant
DX: J40 Bronchitis, not specified as acute or chronic (principal); R06.02 Shortness of breath; Z11.52 Encounter for screening for COVID-19; Z20.828 Contact with and (suspected) exposure to other viral communicable diseases
CPT/HCPCS: 0241U; 71046; 99283; 99284

== ENCOUNTER 2024-01-08 16:11 | Outpatient (REF) | payer MEDICARE, SELFPAY ==
[2024-01-08 17:05] LABS: Hematocrit 40.2 % (42.0-52.0); Hemoglobin 13.5 g/dl (14.0-18.0); Mean Corpuscular HGB Conc 33.6 g/dl (31.0-36.0); Mean Corpuscular Volume 95.3 fL (80.0-98.0); Mean Platelet Volume 10.5 fL (9.4-12.4); Platelet Count 237 X10*3/uL (160-400); Red Blood Count 4.22 X10*6/uL (4.60-5.80); Red Cell Distribution Width 13.9 % (11.0-16.0); White Blood Count 7.1 X10*3/uL (4.8-10.8)
[2024-01-08 17:34] LABS: Alanine Aminotransferase 18 U/L (0-40); Albumin Level 4.4 g/dL (3.5-5.0); Alkaline Phosphatase 89 U/L (39-117); Anion Gap 11 (12-20); Aspartate Amino Transferase 20 U/L (5-37); Bilirubin Total 0.3 mg/dL (0.0-1.0); Blood Urea Nitrogen 19 mg/dL (9-16); Calcium 9.4 mg/dL (8.4-10.2); Carbon Dioxide 26 mmol/L (22-29); Chloride 104 mmol/L (96-108); Estimated Glomerular Filt Rate 58; Glucose Fasting 98 mg/dL (60-99); Iron 100 mcg/dL (45-160); Percent Iron Saturation 29 % (15-50); Potassium 3.7 mmol/L (3.3-5.1); Sodium 137 mmol/L (135-145); Total Iron Binding Capacity 349 mcg/dL (228-428); Total Protein 7.5 g/dL (6.5-8.0); Unsaturated Iron Binding 249 ug/dL
[2024-01-08 18:09] LABS: Folate 9.3 ng/mL (> or = 4.0); Prostate Specific Antigen Scr 0.43 ng/mL (<0.05-4.0); Vitamin B12 301 pg/mL (200-900)
[2024-01-09 04:33] LABS: Syphilis Screen Nonreactive (Nonreactive)
[2024-01-09 04:55] LABS: HIV AB/AG Nonreactive (Nonreactive); HIV Num 1 0.05 S/CO (0.00-0.99)
[2024-01-09 06:05] LABS: CT PCR NOT DETECTED (Not Detect.); NG PCR NOT DETECTED (Not Detect.)
== END 2024-01-08 16:12 | disposition home or self-care (01) ==
LOC: HO.LAB 16:11
PROVIDERS: PCP Physician Assistant; Visit Provider Physician Assistant
DX: Z20.2 Contact with and (suspected) exposure to infections with a predominantly sexual mode of transmission (principal); R20.2 Paresthesia of skin; E53.8 Deficiency of other specified B group vitamins; Z11.3 Encounter for screening for infections with a predominantly sexual mode of transmission; D50.9 Iron deficiency anemia, unspecified; Z13.1 Encounter for screening for diabetes mellitus; Z12.5 Encounter for screening for malignant neoplasm of prostate
CPT/HCPCS: 80053; 82607; 82746; 83540; 84153; 85027; 86780; 87389; 87491; 87591

== ENCOUNTER 2024-05-20 14:58 | Outpatient (AMB) | payer MEDICARE, SELFPAY ==
--- NOTE | 2024-05-20 15:10 | A.OFFPC_ITS ---
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 .. History of pulmonary embolism/ DVT: Patient continues with anticoagulation with Eliquis. No overt signs of bleeding. .. Opiate dependency: Continues to go to a methadone clinic. He does admit to s lips ups every now and then on cocaine. .. Sensation of parasitic parasite or any skin--> The patient reports experiencing these symptoms for several years, describing sensations of parasites under his skin, particularly affecting areas such as the scalp, belt line, and perianal region. He expresses significant frustration and psychological impact, as he perceives these sensations as parasites causing itchiness and crawling sensations. Previous interventions have included consultations with dermatologists during a rehabilitation stay in [place] and [place], where steroids were administered without long-term relief. He has also self-researched treatment options such as ivermectin and permethrin cream. He does report having skin manifestations happening intermittently though to appearance in office today seem like this could be dry skin FORMERLY [facility], [facility]1983 Medical History Polysubstance dependence including opioid type drug, episodic abuse Nasal septum fracture Cyst near coccyx Opiate use Right wrist drop Lumbar disc disease Surgical History History of lumbar fusion History of open reduction and internal fixation (ORIF) procedure History of ventral hernia repair History of inguinal hernia repair Family History Father Leukemia Mother CHF (congestive heart failure) Hypertension H/O ETOH abuse Substance use disorder Sister Diabetes Pancreatitis Substance use disorder Daughter In good health Son No problems noted. Other Mental health disorder Social History Household Members: Other Household Members Other:: Aunt Housing: House Do you presently have visiting nurse or other home services: No Alcohol intake: current Alcohol intake frequency: holidays/special occasions only Comment: patient drinks responsibly Patient Tobacco Use Status: Current everyday Tobacco user Tobacco use type: Cigarette Cigarettes Per Day: 10 Years Smoked: 33 e-Cigarette/Vaping Use: Former Use Second Hand Smoke Exposure: Yes Substance Use Type: Crack/Cocaine service: No Current occupational status: disabled Cognitive needs: No Hearing needs: No Vision needs: No Questionnaire PHQ-9 Over the last 2 weeks, how often have you been bothered by any of the following problems? 1. Little interest or pleasure in doing things: nearly every day 2. Feeling down, depressed, or hopeless: nearly every day 3. Trouble falling or staying asleep, or sleeping too much: nearly every day 4. Feeling tired or having little energy: nearly every day 5. Poor appetite or overeating: more than half the days 6. Feeling bad about yourself - or that you are a failure or have let yourself or your family down: nearly every day 7. Trouble concentrating on things, such as reading the newspaper or watching television: nearly every day 8. Moving or speaking so slowly that other people could have noticed. Or the opposite - being so fidgety or restless that you have been moving around a lot more than usual: several days 9. Thoughts that you would be better off or of hurting yourself in some way: several days Total score: 22 Depression Screening Interpretation: Positive Depression Screening Follow-up: Existing condition and In treatment Depression Screening Done: Yes 16645 - PHQ-9 Billing: Yes Source: Developed by Drs. Jeffy Cordero, Godfrey Harvey and colleagues, with an educational ranjeet from [employer]. Thrive Questionnaire Date Thrive assessed: 05/20/24 I am a: Patient What is your living situation today?: I have a steady place to live Within the past 12 months, did the food you bought not last and you didn't have the money to get more?: Never true Within the past 12 months, did you worry whether your food would run out before you got money to buy more?: Never true Do you have trouble paying for medicines?: No Do you have trouble getting transportation to medical appointments?: No Do you have trouble paying your heating and electricity bill?: No Do you have trouble taking care of your child, family member or friend?: No Do you have trouble with day-to-day activities such as bathing, preparing meals, shopping, managing finances, etc.?: No Are you currently unemployed and looking for a job?: No Are you interested in more education?: No Please select the resources that you would like help with: None Currently or been in a relationship where the following occur: No concerns reported THRIVE Score: 0 AUDIT C Alcohol Use Questionnaire (AUDIT-C) 1. How often do you have a drink containing alcohol?: Monthly or less 2. How many drinks containing alcohol do you have on a typical day when you are drinking?: 1 or 2 3. How often do you have six or more drinks on one occasion?: Less than monthly Total Score: 2 MIRIAN-7 AMB Questionnaire MIRIAN-7 Date MIRIAN - 7 assessed: 05/20/24 Feeling nervous, anxious, or on edge: 3 = Nearly every day Not being able to stop or control worryin = More than half the days Worrying too much about different things: 3 = Nearly every day Trouble relaxin = Nearly every day Being so restless that it is hard to sit still: 3 = Nearly every day Becoming easily annoyed or irritable: 2 = More than half the days Feeling afraid as if something awful might happen: 3 = Nearly every day Total MIRIAN-7 score (0-4 normal; 5-9 mild; 10-14 moderate; 15-21 severe): 19 Source: Developed by Jackeline Valdovinos Kurt Kroenke and colleagues, with an educational ranjeet from [employer]. MIRIAN-7 Assessment Billing MIRIAN-7 Assessment Tool: MIRIAN-7 Assessment 50484 Review of Systems Const Denies headache(s) Eyes Denies loss of vision ENT Denies vertigo, Denies dizziness, Denies headache(s) and Denies sore throat Card Denies chest pain, Denies leg edema and Denies lightheadedness Resp Denies cough, Denies hemoptysis and Denies wheezing GI Denies abdominal pain, Denies melena, Denies constipation, Denies diarrhea and Denies vomiting Denies dysuria, Denies urinary frequency and Denies urinary urgency Musc Denies arthralgias, Denies joint swelling, Denies numbness and Denies tingling Neuro Denies Abnormal speech present, Denies behavioral changes, Denies vertigo, Denies dizziness, Denies headache(s), Denies loss of vision, Denies memory loss, Denies numbness and Denies tingling Psych Denies anxiety, Denies behavioral changes, Denies depression, Denies memory loss and Denies panic attacks Urban/Lymph Denies easy bleeding and Denies easy bruising Aller/Immun Denies wheezing Physical exam (Primary Care) Vital Signs: Last Vital Signs Pulse 114 H 05/20/24 15:12 BP 132/7 L 05/20/24 15:12 Pulse Ox 97 05/20/24 15:12 Oxygen Delivery Method Room Air 05/20/24 15:12 BMI result Body Mass Index 32.8 BMI Assessment/Plan discussion: High BMI High, discussed plan: lifestyle, weight reduction, dietary and physical activity Tobacco/Smoking Status: Tobacco use Status Tobacco use date assessed 03/27/23 05/20/24 15:15 Patient Tobacco Use Status Current everyday Tobacco 05/20/24 15:15 Tobacco use type Cigarette 05/20/24 15:15 e-Cigarette/Vaping Use Former Use 05/20/24 15:15 Are you ready to quit: No Tobacco cessation counseling provided: Yes Items discussed: Nicotine replacement Relapse Prevention: discussed the importance of a supportive environment, discussed negative mood or depression after quitting, weight gain after smoking is common and discussed dietary, exercise and/or lifestyle changes Number of minutes spent counselin CPT code: 78758 - 4-10 Minutes PHQ-9: PHQ-9 Score PHQ-9: Total score 05/20/24 15:15 Depression Screening Interpretation: Positive Depression Screening Follow-up: Existing condition and In treatment Thrive Assessment: Date of Thrive Assessment Date Thrive assessed 05/20/24 05/20/24 15:15 Currently or been in a relationship where the following occur: No concerns reported Const General: healthy appearing, no acute distress, alert and awake Nutritional Appearance: well nourished Orientation/consciousness: oriented to person, oriented to place and oriented to time HENMT Ears: TM's normal bilaterally General nose exam: Normal nasal mucous membranes and turbinates present Eyes Conjunctivae: conjunctivae normal Sclerae: sclerae normal Pupils: Equal, round and reactive pupils present Neck Neck: Yes no lymphadenopathy and Yes no JVD Thyroid: Thyroid normal Carotids: no bruits Resp Effort & Inspection: normal respiratory effort and not tachypneic Auscultation: no crackles, no rales, no rhonchi and no wheezes Cardio Rate: regular rate Rhythm: regular rhythm Heart sounds: no murmurs and normal S1 and S2 GI Palpation (GI): Soft to palpation, nontender, no hepatomegaly and no splenomegaly Auscultation: normal bowel sounds Skin General skin exam: no rashes or lesions noted and dry skin Neuro General: oriented to person, oriented to place and oriented to time Cranial nerves: Yes Equal, round and reactive pupils present Speech: No Abnormal speech present Gait exam (Neuro): Normal gait present Motor exam (neuro): no tremor noted Extrem Right upper extremity: full ROM Left upper extremity: full ROM Right lower extremity: full ROM; no edema Left lower extremity: full ROM; no edema Psych Mental Status: mental status grossly normal Speech and movement: Normal speech and movement present Affect: normal affect Attitude: cooperative Thought process: Normal thought process present Coding Level of Care Code Est Pt Level 4 (90020) Diagnoses Opioid dependence in remission F11.21 Substance use status: in remission Sensation of skin crawling R20.2 Tobacco use disorder F17.200 Additional Codes MIRIAN-7 Assessment Billing - MIRIAN-7 Assessment Tool: MIRIAN-7 Assessment 71990 ([id number]) PHQ-9 - 45417 - PHQ-9 Billing: Yes ([id number]) Vital Signs *Quality* - CPT code: 39429 - 4-10 Minutes ([id number]) Assessment & Plan Assessment & Plan (1) Opiate dependence: Code(s): F11.20 - Opioid dependence, uncomplicated Category: Medical Qualifiers: Substance use status: in remission Qualified Code(s): F11.21 - Opioid dependence, in remission Plan: As per HPI patient does follow a methadone clinic. He does admit to having a few relapses over the last year mostly on cocaine. (2) Sensation of skin crawling: Code(s): R20.2 - Paresthesia of skin Category: Medical Plan: I discussed the probable parasitic sensation (parasitosis) with the patient and recommended referral to an infectious disease specialist. Emphasized that an infectious disease specialist might have more insight and diagnostic capabilities for his condition. We did explain that his sensation might be related to his history of illicit drug use and/or side effect of methadone versus gabapentin though patient disagrees. (3) Tobacco use disorder: Code(s): F17.200 - Nicotine dependence, unspecified, uncomplicated Category: Medical Plan: Patient does understand he needs to quit smoking. He is interested in lung cancer screening program as he does report some shortness of breath at times. Offered him nicotine replacement though he declines at this time Orders: Orders Complete Blood Count no Diff 05/20/24 I82.4Y1 - Acute embolism and thrombosis of unspecified deep veins of right proximal lower extremity Comprehensive Loiza. Panel Fast 05/20/24 Z13.1 - Encounter for screening for diabetes mellitus Referrals Infectious Disease Referral R20.2 - Paresthesia of skin Thoracic/General Surgery Referral F17.200 - Nicotine dependence, unspecified, uncomplicated Medications: New gabapentin 400 mg PO TID 90 caps 3RF 30 days M51.16 - Intervertebral disc disorders with radiculopathy, lumbar region permethrin 5% apply second treatment 14 days after first treatment if live lice remain 1 appl topical Q14D 60 grams 2RF 2 doses R20.2 - Paresthesia of skin Discontinued gabapentin Discontinued Reason: Doctor's Order 300 mg PO TID 30 days 90 caps 3RF M54.30 - Sciatica, unspecified side
[2024-05-20 15:12] VITALS: BP 132/7; PULSE 114; O2SAT 97; BMI 32.8
--- OUTSIDE RECORDS SUMMARY | 2024-05-20 17:27 | XMS_ITS | Data Portability ---
Author Organization [facility] Address [address] [facility] [address] [address] Assessment Encounter Date Assessment Date Assessment LastModified by Organization Details LastModified Time 11/02/2016 11/02/2016 Murali Marroquin is a 45 year old man with complaints of low back pain radiating into left lower extremity with numbness and tingling. He is S/P back surgery in 2008. He has been having an exacerbation of his pain for the past six months. On exam, he has pain with flexion and straight leg raising test is positive on the left. He had a course of physical therapy with no pain benefit. He is doing a home exercise program with persistent pain. I recommend a MRI Lumbar spine to elucidate the etiology of his pain. He will follow up to review the MRI and formulate treatment plans. He might benefit from a trial of lumbar epidural steroid injection under fluoroscopic guidance in the future. [email or web address] Not available 11/15/2016 10:22:21 11/28/2016 11/28/2016 Murali Marroquin is a 46 year old man with complaints of low back pain radiating into left lower extremity with numbness and tingling. He is S/P back surgery in 2008. He has been having an exacerbation of his pain for the past six months. On exam, he has pain with flexion and straight leg raising test is positive on the left. He had a course of physical therapy with no pain benefit. He is doing a home exercise program with persistent pain.MRI Lumbar spine shows Postoperative changes and minor degenerative changes without significant change since 2009. There is no canal stenosis or definite nerve root impingement. I recommend an EMG/NCV study to elucidate the etiology of his pain. He will follow up to review the same and formulate treatment plans. He is concerned about a hernia in his left inguinal region. I recommend a surgical consult. [email or web address] Not available 11/30/2016 10:36:06 Plan of Treatment Reminders Order Date Submit Date Provider Last Modified By Organization Details Last Modified Time Details Appointments None recorded. Lab None recorded. Referral electromyog sera/nerve conduction referral 2016 017 [facility], [address], [address], [place], [address], 7 12:03:53 Procedures None recorded. Surgeries None recorded. Imaging MRI, lumbar spine, w/o contrast 2016 017 [facility] ([facility]), [address], [place], [address], 7 10:01:55 Medication Orders None recorded. Patient TargetsNo targets recorded. Patient Instructions Encounter Date Encounter Id Patient Instructions Last Modified By Organization Details Last Modified Time 11/02/2016 [id number] Benefits of smoking cessation was reviewed in detail and he was advised to continue with activities as tolerated. [email or web address] Not available 11/15/2016 10:21:31 11/28/2016 [id number] Benefits of smoking cessation was reviewed in detail and he was advised to continue with activities as tolerated. [email or web address] Not available 11/30/2016 10:33:43 Reason for Referral Electromyogram/nerve Conduct ion Referral for Lumbosacral radiculopathy Referring Physician: Godwin Polanco, Pain Management, Encounter Date: 11/28/2016 Results Created Date Observation Date Name Description Value Unit Range Abnormal Flag Note LastModifiedBy Organization Detail LastModifiedTime 11/23/19 17 11/21/2016 MRI, lumba r spine , w/o contr ast [facility] Access ion Number : [id number] Toney zhong Name : Trudi degroot [facility] l Record Number : [id number] Date of : 1970 Date of Exam : 2016 Referr ing Physic león : [facility] [address] [place] [address] Exam : MR - LUMBAR SPINE (C-) CPT 04106 - Room Descri ption : [place] Siem Espr 1.5 Techni que : Sag T1 , Sag T2,Sag Stir,A x T2, Ax T1 Final Report HISTOR Y: Lower back pain with bilate ral leg pain, greate r on the left. Histor y of lumbar fusion in 2008. COMPAR JOSE RAFAEL: Compar jose rafael [facility] not [facility]a ble. FINDIN GS: Verteb ral body height , curvat ure, and alignm ent are normal . There is eviden ce of prior anteri or fusion at L4-5 and L5-S1 with suscep tibili ty artifa ct is seen at both levels relate d to interv ertebr al disc spacer s. Remain ing disc height s are preser steven. Bone marrow signal is normal . The visual ized lower thorac ic cord is normal in calibe r and signal . The conus termin ates at L2. There is no clumpi ng of nerve roots along the cauda equina . At T12-L1 and L1-2 there is no signif icant disc bulge, canal stenos is, or neural forami nal compro mise. At L2-3 there is very minima l disc bulgin g and facet spurri ng withou t signif icant canal stenos is. The neural forame n are patent . At L3-4 there is minima l disc bulgin g and facet spurri ng withou t canal stenos is. There is minima l bilate ral neural forami nal stenos is. At L4-5 there has been prior anteri or fusion . There is small centra l osteop hyte and facet spurri ng withou t canal stenos is. There is minima l right neural forami nal stenos is. At L5-S1 there has been prior anteri or fusion . There is no canal stenos is. Minima l facet spurri ng is seen, as well as minima l margin al osteop hyte contri buting to minima l right neural forami nal stenos is. Retrop eriton eal soft tissue s are grossl y unrema rkable . IMPRES [place]: Postop erativ e change s and minor degene rative change s are seen as detail ed above, withou t signif icant change since 2009. There is no canal stenos is or defini te nerve root imping ement. ----- PHYSIC LEÓN : MARISELA OTT MD (Ritu milner on file) 2016 [facility] ([facility]) [address] [place], [address], 11/29/2016 08:27:04 11/23/19 17 11/21/2016 MRI, lumba r spine , w/o contr ast No observ ation record ed. [facility]. - Mri [address] [place], [address], 11/29/2016 08:27:05 02/01/20 17 01/29/2017 imagi ng/radha vo tic resul t No observ ation record ed. [facility] [address] [place], [address], 02/14/2017 11:44:03 Result Notes None recorded. Problems Name Problem SNOMED Code Status Onset Date Resolution Date Notes Provider Name and Address Organization Details Recorded Time Displacement of lumbar intervertebral disc without myelopathy 58555561 Active 2016 Godwin wood MD [address] [facility] , [address], [place], [address], [place] [facility] 7 09:03:55 Lumbosacral radiculopathy 8104337 Active 2016 Godwin wood MD [address] [facility] , [address], [place], [address], [place] [facility] 7 09:03:57 Spinal stenosis of lumbar region 19918024 Active 2016 Godwin wood MD [address] [facility] , [address], [place], [address], [place] [facility] 7 09:03:58 Lumbosacral spondylosis without myelopathy 18765210 Active 2016 Godwin wood MD [address] [facility] , [address], [place], [address], [place] [facility] 7 09:04:00 Problem Notes None recorded. Procedures Surgical History Date Name Laterality Status Provider Name and Address Organization Details Recorded Time Back Surgery completed Gris Senzier [place] [facility] 11/02/2016 11:12:19 Appendectomy completed Gris Senzier [place] [facility] 11/02/2016 11:12:27 Hernia Repair completed Gris Senzier [place] [facility] 11/02/2016 11:12:48 Other completed Gris Zaragoza [place] [facility] 11/02/2016 11:14:02 Other completed Gris Zraagoza [place] [facility] 11/02/2016 11:14:56 Other completed Gris Senzier [place] [facility] 11/02/2016 11:15:41 Imaging Results Imaging Date Name Status LastModified by Organiz ation Details LastModified Time 11/21/2016 MRI, lumbar spine, w/o contrast completed [facility] ([facility]) [address] [place], [address], 11/29/2016 08:27:04 11/21/2016 MRI, lumbar spine, w/o contrast completed [facility] - [facility] [address] [place], [address], 11/29/2016 08:27:05 01/29/2017 imaging/diagn ostic result completed [facility] [address] [place] [address], [address], 02/14/2017 11:44:03 Procedure Notes None recorded. Medical Equipment None Reported. Allergies No known drug allergies Medications Name Sig Start Date Stop Date Status Note LastModified by Organization Details LastModified Time clonidine HCl 0.1 mg tablet take 1 to 2 tablets by mouth at bedtime pain for SWEATS AND ANXIETY 11/02 completed Not Available Not Available Not Available hydroxyzine HCl 50 mg tablet take 1 tablet by mouth every 6 hours if needed for nausea anxiety and insomnia 11/02 completed Not Available Not Available Not Available lorazepam 0.5 mg tablet TAKE 1 TABLET BY MOUTH THREE TIMES A DAY NEEDED FOR 30 DAYS active Not Available Not Available No t Available gabapentin 800 mg tablet Take 1 tablet 3 times a day by oral route. active Not Available Not Available No t Available Benadryl 25 mg capsule 3 tabs at bedtime active Not Available Not Available No t Available Readi-Cat 2 2.1 % (w/v), 2.0 % (w/w) oral suspension DRINK FIRST BOTTLE 6 HOURS BEFORE EXAM. DRINK SECOND BOTTLE 90 MINUTES BEFORE EXAM active Not Available Not Available No t Available oxycodone 10 mg tablet TAKE 1 TABLET BY MOUTH EVERY 8 HOURS FOR 30 DAYS active Not Available Not Available No t Available Suboxone 8 mg-2 mg sublingual film take 2 FILMs under the tongue once daily active Not Available Not Available No t Available Multi Vitamin active Not Available Not Available Not Available Vitals Date Recorded Heart rate Oxygen saturation Oxygen saturation in Arterial blood by Pulse oximetry Body height Body mass index (BMI) Body weight Systolic blood pressure Diastolic blood pressure Provider Name and Address Organization Details Last Updated DateTime 7 78 /min 95 % 95 % 182.88 cm 25.8 kg/m2 92722.5 5 g 104 mm[Hg] 61 mm[Hg] Gris Zaragoza [facility] 7 11:05:11 Date Recorded Body height Heart rate Oxygen saturation Oxygen saturation in Arterial blood by Pulse oximetry Systolic blood pressure Diastolic blood pressure Provider Name and Address Organization Details Last Updated DateTime 7 182.88 cm 74 /min 97 % 97 % 141 mm[Hg] 83 mm[Hg] Gris Zaragoza [facility] 7 15:37:36 Social History Question Answer Notes LastModified by Organizat ion Details LastModified Time Tobacco Smoking Status Current Every Day Smoker Not Available [employer] 02/12/2020 03:16:10 What Is Your Level Of Alcohol Consumption? Occasional [id number] Information not available 02/12/2020 Are You Currently Employed? No Disability [id number] Information not available 02/12/2020 Which Illicit Or Recreational Drugs Have You Used? Marijuana [id number] Information not available 02/12/2020 Education 11 Information no t available 11/02/2016 Live Alone Or With Others? Alone Information not available 11/02/2016 Marital Status Informatio n not available 11/02/2016 What Was The Date Of Your Most Recent Tobacco Screening? 11/30/2016 [id number] Information not available 02/12/2020 How Much Tobacco Do You Smoke? 1 PPD [id number] Information not available 02/12/2020 How Many Years Have You Smoked Tobacco? 30 [id number] Information not available 02/12/2020 Sex: Unknown Functional Status None recorded. Mental Status None recorded. Family History Relationship Description Onset Age of this Age Resolved Age Notes LastModified by Organization Details LastModified Time Mother Congestive heart failure Not available 2016 11:09:57 Sister Diabetes mellitus Not available 2016 11:10:12 Medical History Condition Response Anxiety Disorder Y Depression Y Past Encounters Encounter ID Performer Location Encounter Start Date Encounter Closed Date Diagnosis/Indication Diagnosis SNOMED-CT Code Diagnosis ICD10 Code Diagnosis Note [id number] Godwin Polanco MD PAIN OFFICE [address] [address] [place] [address] 11/02/2016 10:56:21 11/15/2016 10:28:35 Displacement of lumbar intervertebral disc without myelopathy 47788067 M51.26 Lumbosacra l radiculopathy 3279967 M54.16 Spinal cristobal nosis of lumbar region 25113143 M48.06 Lumbosacra l spondylosis without myelopathy 37779606 M47.817 [id number] Godwin Polanco MD PAIN OFFICE [address] [facility] [place] [place] [address] 11/28/2016 15:30:59 11/30/2016 10:41:48 Displacement of lumbar intervertebral disc without myelopathy 71599565 M51.26 Lumbosacra l radiculopathy 8715807 M54.16 Spinal cristobal nosis of lumbar region 16312572 M48.06 Lumbosacra l spondylosis without myelopathy 65296514 M47.817 Health Concerns Section Related Observation LastModified by Organization Detai ls LastModified Time None Recorded Concern Status LastModified by Organization Details LastModified Time None Recorded Advance Directives Directive None Recorded Payers Encounter Date Sequence Insurance Name Policy Number Policy Linder Covered Member ID Linder Member ID Guarantor Name 11/02/2016 1 [facility] (MEDICARE REPLACEMENT/A DVANTAGE - PPO) [id number] Murali Marroquin [id number] Murali Marroquin 11/28/2016 1 [facility] (MEDICARE REPLACEMENT/A DVANTAGE - PPO) [id number] Murali Marroquin [id number] Murali Marroquin Notes Date Note Type Note Provider Name and Address Organization Details Recorded Time 11/02/2016 text/html Murali Marroquin i s a 45 year old man with complaints of low back pain radiating into left lower extremity with numbness and tingling. He states he had a fall from a roof in 2007 and has been having low back pain since the fall. He had a lumbar fusion done by Dr. Vance in 2008 with some pain benefit. He has been having an exacerbation of his pain for the past six months. He has not had any recent MRIs. He describes the pain as a sharp stabbing pain in the left side of his low back which radiates into his left lower extremity with numbness and tingling. The pain in his left lower extremity is aching and at times throbbing in nature. Current pain level is 5/10 . High pain level is 10/10. Pain is aggravated by flexion and relieved by application of heat and ice. He has no history of bladder or bowel incontinence.He had a course of physical therapy which did not help. He has trialed acupuncture which helped temporarily but was expensive for him. He has also trialed chiropractic , hypnosis and massage with some pain benefit.He had a trial of injections prior to surgery which did not help. He is on gabapentin 800 mg tid. Godwin Polanco MD [address] , [address], [place], [address], [place] [facility] 11/19/2016 08:49:29 11/28/2016 text/html He is here for a review of his MRI. MRI Lumbar spine shows Postoperative changes and minor degenerative changes without significant change since 2009. There is no canal stenosis or definite nerve root impingement. He continues to have pain in his left lower extremity. He is frustrated today as MRI shows no explanation for his pain. Godwin Polanco MD [address] , [address], [place], [address], [facility] 12/03/2016 09:04:08
== END 2024-05-20 16:25 | disposition home or self-care (01) ==
PROVIDERS: PCP Physician Assistant; Visit Provider Physician Assistant
DX: F11.21 Opioid dependence, in remission (principal); R20.2 Paresthesia of skin; F17.200 Nicotine dependence, unspecified, uncomplicated

== ENCOUNTER → 2024-05-20 14:58 | Outpatient (BNVA) | payer MEDICARE, SELFPAY | PROVIDERS: PCP Physician Assistant; Visit Provider Physician Assistant | DX: F11.21 Opioid dependence, in remission (principal); R20.2 Paresthesia of skin; F17.200 Nicotine dependence, unspecified, uncomplicated; Z71.6 Tobacco abuse counseling | CPT/HCPCS: 96127; 99212 ==

== ENCOUNTER 2024-08-03 15:52 | Outpatient (AMB) | payer MEDICARE, SELFPAY ==
[2024-08-03 16:06] VITALS: BP 128/78; PULSE 120; TEMP 36.2; BMI 32.0
--- NOTE | 2024-08-03 16:06 | A.OFFPC_ITS ---
Vital Signs 08/03/24 16:06 Height 6 ft Weight 236 lb 4 oz BMI 32.0 BP 128/78 Blood Pressure Location Lt brachial Position Sitting Pulse 120 H Pulse Source Pulse Oximeter Temp 97.1 F Temp Source Temporal Artery Scan Intake Visit Reasons: Annual PE Gum Sprayer Required: No Accompanied by: Self / Same As Patient Allergies No Known Allergies Allergy (Mild, Verified 08/03/24 16:19) N/A Medication List - Last Reconciled 08/03/24 by Yakov Escudero PA-C apixaban (Eliquis) 5 mg PO BID 30 days gabapentin 400 mg PO TID 30 days methadone 138 mg PO DAILY permethrin 5% 1 appl topical Q14D 2 doses tizanidine 2 mg PO BEDTIME 30 days Tobacco use date assessed: 08/03/24 Dental Screening Dental Screen Date: 08/03/24 Did you have a dental visit in the last 12 months?: Yes Did you have a dental problem in the last 6 months where you did not have access to dental care?: No Was dental information given to patient?: Patient has dentist HPI Annual PE HPI Details Patient is a 53 year-old male here today for routine annual physical. 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 .. History of pulmonary embolism/ DVT: Patient continues with anticoagulation with Eliquis. No overt signs of bleeding. .. Opiate dependency: Continues to go to a methadone clinic. He does admit to slips ups every now and then on cocaine. He reports he is over 100 mg a methadone in his trying to continue to wean. He is somewhat open to the idea he is having somewhat of a side effect of methadone causing his skin itchiness though this is unclear. -->Advised he may do better on a bupreno rphine type product and is interested in seeing addiction treatment personnel to discuss this. .. Tobacco dependency: He continues to smoke and does understand he needs to quit smoking. He has had difficulty nonsmoking and does have nicotine replacement available to him. .. Sensation of parasitic parasite or any skin--> The patient reports experiencing these symptoms for several years, describing sensations of parasites under his skin, particularly affecting areas such as the scalp, belt line, and perianal region. He expresses significant frustration and psychological impact, as he perceives these sensations as parasites causing itchiness and crawling sensations. Previous interventions have included consultations with dermatologists during a rehabilitation stay in [place] and [place], where steroids were administered without long-term relief. He has also self-researched treatment options such as ivermectin and permethrin cream. He does report having skin manifestations happening intermittently though to appearance in office today seem like this could be dry skin Vaccines: UTD with Tdap , declines COVID vaccine, Needs Shingles vaccine, Needs Colon cancer screening: Had a colonoscopy at [facility]. Has cologaurd at home he has yet to do. FOR[facility]LY [facility], [facility] Medical History History of DVT (deep vein thrombosis) (~2020) History of pulmonary embolus (PE) (~2020) Nicotine dependence, cigarettes, uncomplicated Polysubstance dependence including opioid type drug, episodic abuse Nasal septum fracture Cyst near coccyx Opiate use Right wrist drop Lumbar disc disease Surgical History History of surgical removal of pilonidal cyst History of orthopedic surgery History of lumbar fusion History of open reduction and internal fixation (ORIF) procedure History of ventral hernia repair History of inguinal hernia repair Family History Father Leukemia Mother CHF (congestive heart failure) Hypertension H/O ETOH abuse Substance use disorder Sister Diabetes Pancreatitis Substance use disorder Daughter In good health Son No problems noted. Other Mental health disorder Social History Household Members: Other Household Members Other:: Aunt Housing: House Do you presently have visiting nurse or other home services: No Alcohol intake: current Alcohol intake frequency: holidays/special occasions only Comment: patient drinks responsibly Patient Tobacco Use Status: Current everyday Tobacco user Tobacco use type: Cigarette Cigarettes Per Day: 10 Years Smoked: 33 e-Cigarette/Vaping Use: Former Use Second Hand Smoke Exposure: Yes Substance Use Type: Crack/Cocaine service: No Current occupational status: disabled Cognitive needs: No Hearing needs: No Vision needs: No Questionnaire PHQ-9 Over the last 2 weeks, how often have you been bothered by any of the following problems? 1. Little interest or pleasure in doing things: several days 2. Feeling down, depressed, or hopeless: several days 3. Trouble falling or staying asleep, or sleeping too much: several days 4. Feeling tired or having little energy: several days 5. Poor appetite or overeating: several days 6. Feeling bad about yourself - or that you are a failure or have let yourself or your family down: not at all 7. Trouble concentrating on things, such as reading the newspaper or watching television: not at all 8. Moving or speaking so slowly that other people could have noticed. Or the opposite - being so fidgety or restless that you have been moving around a lot more than usual: not at all 9. Thoughts that you would be better off or of hurting yourself in some way: not at all Total score: 5 Depression Screening Interpretation: Positive Depression Screening Follow-up: Existing condition Depression Screening Done: Yes 44737 - PHQ-9 Billing: Yes Source: Developed by Drs. Jeffy Cordero, Jackeline Hurd, Godfrey Chandler and colleagues, with an educational ranjeet from [employer]. Thrive Questionnaire Date Thrive assessed: 08/01/24 I am a: Patient What is your living situation today?: I have a place to live, but I am worried about losing it in the future Within the past 12 months, did the food you bought not last and you didn't have the money to get more?: Often true Within the past 12 months, did you worry whether your food would run out before you got money to buy more?: Often true Do you have trouble paying for medicines?: Yes Do you have trouble getting transportation to medical appointments?: Yes Do you have trouble paying your heating and electricity bill?: Yes Do you have trouble taking care of your child, family member or friend?: No Do you have trouble with day-to-day activities such as bathing, preparing meals, shopping, managing finances, etc.?: Yes Are you currently unemployed and looking for a job?: Yes Are you interested in more education?: No Please select the resources that you would like help with: Food and Paying for medicine Currently or been in a relationship where the following occur: Controlled Financially and Controlled Emotionally THRIVE Score: 7 AUDIT C Alcohol Use Questionnaire (AUDIT-C) 1. How often do you have a drink containing alcohol?: 2-4 times a month Total Score: 2 MIRIAN-7 AMB Questionnaire MIRIAN-7 Date MIRIAN - 7 assessed: 05/20/24 Feeling nervous, anxious, or on edge: 2 = More than half the days Not being able to stop or control worryin = Several days Worrying too much about different things: 2 = More than half the days Trouble relaxin = More than half the days Being so restless that it is hard to sit still: 3 = Nearly every day Becoming easily annoyed or irritable: 3 = Nearly every day Feeling afraid as if something awful might happen: 3 = Nearly every day Total MIRIAN-7 score (0-4 normal; 5-9 mild; 10-14 moderate; 15-21 severe): 16 Source: Developed by Drs. Jeffy Cordero, Jackeline Hurd, Godfrey Chandler and colleagues, with an educational ranjeet from [employer]. MIRIAN-7 Assessment Billing MIRIAN-7 Assessment Tool: MIRIAN-7 Assessment 74392 Physical exam (Primary Care) Vital Signs: Last Vital Signs Temp 97.1 F 08/03/24 16:06 Pulse 120 H 08/03/24 16:06 BP 128/78 08/03/24 16:06 BMI result Body Mass Index 32.0 Tobacco/Smoking Status: Tobacco use Status Tobacco use date assessed 08/03/24 08/03/24 16:11 Patient Tobacco Use Status Current everyday Tobacco 08/03/24 16:09 Tobacco use type Cigarette 08/03/24 16:09 e-Cigarette/Vaping Use Former Use 08/03/24 16:09 PHQ-9: PHQ-9 Score PHQ-9: Total score 5 08/03/24 16:24 Depression Screening Interpretation: Positive Depression Screening Follow-up: Existing condition Thrive Assessment: Date of Thrive Assessment Date Thrive assessed 08/01/24 08/03/24 16:09 Currently or been in a relationship where the following occur: Controlled Financially and Controlled Emotionally Coding Level of Care Code Est Pt Prev Care 40-64y(00429) Diagnoses Annual physical exam Z00.00 Opioid dependence in remission F11.21 Substance use status: in remission Sensation of skin crawling R20.2 Tobacco use disorder F17.200 Intrinsic eczema L20.84 Eczema type: intrinsic Class 1 obesity E66.811 Additional Codes PHQ-9 - 30228 - PHQ-9 Billing: Yes ([id number]) MIRIAN-7 Assessment Billing - MIRIAN-7 Assessment Tool: MIRIAN-7 Assessment 45761 ([id number]) Assessment & Plan Assessment & Plan (1) Annual physical exam: Code(s): Z00.00 - Encounter for general adult medical examination without abnormal findings Category: Medical Plan: As per HPI (2) Opiate dependence: Code(s): F11.20 - Opioid dependence, uncomplicated Category: Medical Qualifiers: Substance use status: in remission Qualified Code(s): F11.21 - Opioid dependence, in remission Plan: As per HPI patient does follow a methadone clinic. He continues to try to wean down on methadone dose. Currently still on fairly high dose above 100 mg. He is interested in speaking with the alternative addiction alternative financing specialist about switching to a buprenorphine product (3) Sensation of skin crawling: Code(s): R20.2 - Paresthesia of skin Category: Medical Plan: I discussed the probable parasitic sensation (parasitosis) with the patient and recommended referral to an infectious disease specialist. Emphasized that an infectious disease specialist might have more insight and diagnostic capabilities for his condition. We did explain that his sensation might be related to his history of illicit drug use and/or side effect of methadone versus gabapentin though patient disagrees. (4) Tobacco use disorder: Code(s): F17.200 - Nicotine dependence, unspecified, uncomplicated Category: Medical Plan: Patient does understand he needs to quit smoking. He is interested in lung cancer screening program as he does report some shortness of breath at times. Offered him nicotine replacement though he declines at this time (5) Eczema: Code(s): L30.9 - Dermatitis, unspecified Category: Medical Qualifiers: Eczema type: intrinsic Qualified Code(s): L20.84 - Intrinsic (allergic) eczema Plan: Patient's skin manifestation maybe related to an eczema versus psoriasis. Appears to be itchy and somewhat irritating at times. He is determined has some kind of a parasitic infection in his skin does show some randomly in different areas of his body. Will refer to Dermatology for evaluation of his skin lesions (6) Class 1 obesity: Code(s): E66.811 - Obesity, class 1 Category: Medical Plan: Patient does understand his BMI is over 30 will work on being more physically active and adapting to better eating habits to reduce his weight Orders: Orders Resp Allergy Profile Region I 08/03/24 R05.9 - Cough, unspecified, R20.2 - Paresthesia of skin Pneumococcal 20 Immunization 08/03/24 L20.84 - Intrinsic (allergic) eczema, Z23 - Encounter for immunization Prostate Specific Antigen Scr 08/03/24 F11.21 - Opioid dependence, in remission, Z12.5 - Encounter for screening for malignant neoplasm of prostate Referrals Dermatology Referral L20.84 - Intrinsic (allergic) eczema Addiction Medicine Referral F11.21 - Opioid dependence, in remission Cologuard Test Z12.11 - Encounter for screening for malignant neoplasm of colon Medications: New pneumoc 20-modesto conj-dip cr(PF) 0.5 mL IM ONCE 0.5 mL 0RF L20.84 - Intrinsic (allergic) eczema, Z23 - Encounter for immunization
--- OUTSIDE RECORDS SUMMARY | 2024-08-03 18:30 | XMS_ITS | Data Portability ---
Author Organization [facility] Address [address] [facility] [address] [address] Assessment Encounter Date Assessment Date Assessment LastModified [...] Referral electromyog sera/nerve conduction referral 2016 017 [facility], [address], [address], [place], [address], 7 12:03:53 Procedures None recorded. Surgeries None recorded. Imaging MRI, lumbar spine, w/o contrast 2016 017 [facility] ([facility]), [address], [place], [address], 7 10:01:55 Medication Orders None recorded. Patient TargetsNo targets recorded. Patient Instructions Encounter Date Encounter Id Patient Instructions Last Modified By Organization Details Last Modified Time 11/02/2016 [id number] Benefits of smoking cessation was reviewed in detail and he was advised to continue with activities as tolerated. [email or web address] Not available 11/15/2016 10:21:31 11/28/2016 [id number] Benefits of smoking cessation was reviewed in [...] w/o contr ast [facility] [place] Access ion Number : [id number] Toney zhong Name : Trudi degroot [facility] l Record Number : [id number] Date of : 1970 Date of Exam : 2016 Referr ing Physic león : [facility] [address] [place] [address] Exam : MR - LUMBAR SPINE (C-) CPT 28941 - Room Descri ption : Ulysses Siem Espr 1.5 Techni que : Sag T1 , Sag T2,Sag Stir,A x T2, Ax T1 Final Report HISTOR Y: Lower back pain with bilate ral leg pain, greate r on the left. Histor y of lumbar fusion in 2008. COMPAR JOSE RAFAEL: Compar jose rafael made to lumbar spine [facility] though the report is not [...] OTT MD (Ritu milner on file) 2016 [facility] ([facility]) [address] [place], [address], 11/29/2016 08:27:04 11/23/19 17 11/21/2016 MRI, lumba r spine , w/o contr ast No observ ation record ed. [facility]. - Mri [address] [place], [address], 11/29/2016 08:27:05 02/01/20 17 01/29/2017 imagi ng/radha vo tic resul t No observ ation record ed. [facility] [place] [address] [place], [address], 02/14/2017 11:44:03 Result Notes None recorded. Problems Name Problem SNOMED Code Status Onset Date Resolution Date Notes Provider Name and Address Organization Details Recorded Time Displacement of lumbar intervertebral disc without myelopathy 42553029 Active 2016 Godwin wood MD [address] [address] [facility] , [address], [place], [address], [place] [facility] 7 09:03:55 Lumbosacral radiculopathy 7994515 Active 2016 Godwin wood MD [address] [facility] , [address], [place], [address], [place] [facility] 7 09:03:57 Spinal stenosis of lumbar region 54196763 Active 2016 Godwin wood MD [address] [facility] , [address], [place], [address], [place] [facility] 7 09:03:58 Lumbosacral spondylosis without myelopathy 57069015 Active 2016 Godwin wood MD [address] [facility] , [address], [place], [address], [place] [facility] 7 [...] Pain Management 11/02/2016 11:14:02 Other completed Gris Zaragoza [place] [facility] 11/02/2016 11:14:56 Other completed Gris Senzier [place] [facility] 11/02/2016 11:15:41 Imaging Results Imaging Date Name Status LastModified by Organiz ation Details LastModified Time 11/21/2016 MRI, lumbar spine, w/o contrast completed [facility] ([facility]) [address] [place], [address], 11/29/2016 08:27:04 11/21/2016 MRI, lumbar spine, w/o contrast completed [facility] - [facility] [address] [place], [address], 11/29/2016 08:27:05 01/29/2017 imaging/diagn ostic result completed [facility] [address] [place] [address], [address], 02/14/2017 11:44:03 Procedure Notes None recorded. Medical [...] % 95 % 182.88 cm 25.8 kg/m2 44503.5 5 g 104 mm[Hg] 61 mm[Hg] Gris Zaragoza [facility] 7 11:05:11 Date Recorded Body height Heart rate Oxygen saturation Oxygen saturation in Arterial blood by Pulse oximetry Systolic blood pressure Diastolic blood pressure Provider Name and Address Organization Details Last Updated DateTime 7 182.88 cm 74 /min 97 % 97 % 141 mm[Hg] 83 mm[Hg] Gris Zaragoza [facility] 7 15:37:36 Social History Question Answer Notes LastModified by Organizat ion Details LastModified Time Tobacco Smoking Status Current Every Day Smoker Not Available [employer] 02/12/2020 03:16:10 What Is Your Level Of Alcohol Consumption? Occasional [id number] Information not available 02/12/2020 Are You Currently Employed? No Disability [id number] Information not available 02/12/2020 Which Illicit Or Recreational Drugs Have You Used? Marijuana [id number] Information not available 02/12/2020 Education 11 Information no t available 11/02/2016 Live Alone Or With Others? Alone Information not available 11/02/2016 Marital Status Informatio n not available 11/02/2016 What Was The Date Of Your Most Recent Tobacco Screening? 11/30/2016 [id number] Information not available 02/12/2020 How Much Tobacco Do You Smoke? 1 PPD [id number] Information not available 02/12/2020 How Many Years Have You Smoked Tobacco? 30 [id number] Information not available 02/12/2020 Sex: Unknown Functional [...] SNOMED-CT Code Diagnosis ICD10 Code Diagnosis Note 13372 Godwin Polanco MD PAIN OFFICE [address] [place] [address] 11/02/2016 10:56:21 11/15/2016 10:28:35 Displacement of lumbar intervertebral disc without myelopathy 50788180 M51.26 Lumbosacra l radiculopathy 3392497 M54.16 Spinal cristobal nosis of lumbar region 77603660 M48.06 Lumbosacra l spondylosis without myelopathy 55619830 M47.817 99659 Godwin Polanco MD PAIN OFFICE [address] [facility] [place] [address] 11/28/2016 15:30:59 11/30/2016 10:41:48 Displacement of lumbar intervertebral disc without myelopathy 08195689 M51.26 Lumbosacra l radiculopathy 3579404 M54.16 Spinal cristobal nosis of lumbar region 27797660 M48.06 Lumbosacra l spondylosis without myelopathy 17921551 M47.817 Health Concerns Section Related Observation LastModified by Organization Detai ls LastModified Time None Recorded Concern Status LastModified by Organization Details LastModified Time None Recorded Advance Directives Directive None Recorded Payers Encounter Date Sequence Insurance Name Policy Number Policy Linder Covered Member ID Linder Member ID Guarantor Name 11/02/2016 1 [facility] (MEDICARE REPLACEMENT/A DVANTAGE - PPO) [id number] Murali Marroquin [id number] Murali Marroquin 11/28/2016 1 [facility] (MEDICARE REPLACEMENT/A DVANTAGE - PPO) [id number] Murali Marroquin [id number] Murali Marroquin Notes Date Note Type Note [...] 800 mg tid. Godwin Polanco MD [address] [employer] , [address], [place], [address], [place] [facility] 11/19/2016 08:49:29 [...] for his pain. Godwin Polanco MD [address] , [address], [place], [address], [facility] 12/03/2016 09:04:08
== END 2024-08-03 16:50 | disposition home or self-care (01) ==
LOC: HO.HMCH 15:52
PROVIDERS: PCP Physician Assistant; Visit Provider Physician Assistant
DX: Z00.00 Encounter for general adult medical examination without abnormal findings (principal); F11.21 Opioid dependence, in remission; E66.811 Obesity, class 1; Z68.32 Body mass index [BMI] 32.0-32.9, adult; R20.2 Paresthesia of skin; F17.200 Nicotine dependence, unspecified, uncomplicated; L20.84 Intrinsic (allergic) eczema; Z23 Encounter for immunization

== ENCOUNTER → 2024-08-03 15:52 | Outpatient (BNVA) | payer MEDICARE, SELFPAY | PROVIDERS: PCP Physician Assistant; Visit Provider Physician Assistant | DX: Z00.00 Encounter for general adult medical examination without abnormal findings (principal); E66.9 Obesity, unspecified; F11.21 Opioid dependence, in remission; E66.811 Obesity, class 1; R20.2 Paresthesia of skin; L20.84 Intrinsic (allergic) eczema; Z23 Encounter for immunization; Z79.01 Long term (current) use of anticoagulants; Z86.711 Personal history of pulmonary embolism; Z86.718 Personal history of other venous thrombosis and embolism; Z68.32 Body mass index [BMI] 32.0-32.9, adult | CPT/HCPCS: 90471; 90677; 96127; 99396 ==

== ENCOUNTER 2024-08-14 10:33 | Outpatient (REF) | payer MEDICARE, SELFPAY ==
--- NOTE | ~2024-08-14 | CT_ITS ---
EXAMINATION: CT LUNG SCREENING HISTORY: Smoking history TECHNIQUE: Low dose axial images were obtained from the sternal notch to upper abdomen without IV contrast per standard departmental protocol. Sagittal and coronal reformatted images were also obtained and reviewed. One or more of the following techniques was used for dose reduction: Automated exposure control, adjustment of the mA and/or kV according to patient size, use of iterative reconstruction technique. DLP: 84 mGy-cm COMPARISON: Comparison is made with the prior examination dated 11/04/2020. FINDINGS: Lung nodules: There is a punctate nodule in the right upper lobe (series 4, image 83). There is a 3-4 mm nodule in the right lower lobe (series 4, image 143) which was present previously. An additional 3 mm subpleural nodule is seen in the lingula (series 4, image 124), without change. Emphysema: moderate Coronary Calcification: moderate Aortic Arch Calcification: none Potentially Significant Incidentals : none Additional Chest Findings: There is no pleural or pericardial effusion. No mediastinal or axillary lymphadenopathy is identified. Visualized upper abdomen: The visualized portions of the liver, spleen, and adrenals have an unremarkable unenhanced appearance. CT/CT lung screening IMPRESSION: No suspicious pulmonary nodules are identified. LUNG-RADS ASSESSMENT: Lung-RADS 2: Benign MANAGEMENT: Continue annual screening with LDCT in 12 months Category S: N/A Electronically signed by: Jeffy Glass MD 08/14/2024 11:58 AM EDT
[2024-08-14 11:32] LABS: Hemoglobin 14.2 g/dl (14.0-18.0); Mean Corpuscular HGB Conc 33.8 g/dl (31.0-36.0); Mean Corpuscular Hemoglobin 32.2 pg (27.0-33.0); Mean Corpuscular Volume 95.2 fL (80.0-98.0); Mean Platelet Volume 10.6 fL (9.4-12.4); Platelet Count 246 X10*3/uL (160-400); Red Blood Count 4.41 X10*6/uL (4.60-5.80); Red Cell Distribution Width 13.5 % (11.0-16.0); White Blood Count 6.1 X10*3/uL (4.8-10.8)
--- OUTSIDE RECORDS SUMMARY | 2024-08-14 11:37 | XMS_ITS | Data Portability ---
Author Organization [facility] Address [address] [facility] [address] [address] Assessment Encounter Date Assessment Date Assessment LastModified [...] Referral electromyog sera/nerve conduction referral 2016 017 [facility], [address], [address], [place], [address], 7 12:03:53 Procedures None recorded. Surgeries None recorded. Imaging MRI, lumbar spine, w/o contrast [address] [facility] ([facility] [address], [place], [address], 7 10:01:55 Medication Orders None recorded. Patient TargetsNo targets recorded. Patient Instructions Encounter Date Encounter Id Patient Instructions Last Modified By Organization Details Last Modified Time 11/02/2016 [id number] Benefits of smoking cessation was reviewed in detail and he was advised to continue with activities as tolerated. [email or web address] Not available 11/15/2016 10:21:31 11/28/2016 [id number] Benefits of smoking cessation was reviewed in [...] w/o contr ast [facility] [place] field Access ion Number : [id number] Toney zhong Name : Trudi degroot [facility] l Record Number : [id number] Date of : 1970 Date of Exam : 2016 Referr ing Physic león : [facility] [address] [place] [address] Exam : MR - LUMBAR SPINE (C-) CPT 81180 - Room Descri ption : [place] Siem Espr 1.5 Techni que : Sag T1 , Sag T2,Sag Stir,A x T2, Ax T1 Final Report HISTOR Y: Lower back pain with bilate ral leg pain, greate r on the left. Histor y of lumbar fusion in 2008. COMPAR JOSE RAFAEL: Compar jose rafael made to lumbar spine [facility] report [facility] not [...] OTT MD (Ritu milner on file) 2016 [facility] ([facility]) [address] [place], [address], 11/29/2016 08:27:04 11/23/19 17 11/21/2016 MRI, lumba r spine , w/o contr ast No observ ation record ed. [facility]. - [facility]ri [address] [place], [address], 11/29/2016 08:27:05 02/01/20 17 01/29/2017 imagi ng/radha vo tic resul t No observ ation record ed. [facility] [address] [place], [address], 02/14/2017 11:44:03 Result Notes None recorded. Problems Name Problem SNOMED Code Status Onset Date Resolution Date Notes Provider Name and Address Organization Details Recorded Time Displacement of lumbar intervertebral disc without myelopathy 98781974 Active 2016 Godwin wood MD [address] [facility] , [address], [place], [address], [place] [facility] 7 09:03:55 Lumbosacral radiculopathy 6755478 Active 2016 Godwin wood MD [address] [facility] , [address], [place], [address], [place] [facility] 7 09:03:57 Spinal stenosis of lumbar region 33394162 Active 2016 Godwin wood MD [address] [facility] , [address], [place], [address], [place] [facility] 7 09:03:58 Lumbosacral spondylosis without myelopathy 51169658 Active 2016 Godwin wood MD [address] [facility] , [address], [place], [address], [place] [facility] 7 [...] 11/21/2016 MRI, lumbar spine, w/o contrast completed [facility] ([facility]) [address] [place], [address], 11/29/2016 08:27:04 11/21/2016 MRI, lumbar spine, w/o contrast completed [facility] [address] [place], [address], 11/29/2016 08:27:05 01/29/2017 imaging/diagn ostic result completed [facility] [address] [place] [address], [address], 02/14/2017 11:44:03 Procedure Notes None recorded. Medical [...] % 95 % 182.88 cm 25.8 kg/m2 72946.5 5 g 104 mm[Hg] 61 mm[Hg] Gris Zaragoza [facility] 7 11:05:11 Date Recorded Body height Heart rate Oxygen saturation Oxygen saturation in Arterial blood by Pulse oximetry Systolic blood pressure Diastolic blood pressure Provider Name and Address Organization Details Last Updated DateTime 7 182.88 cm 74 /min 97 % 97 % 141 mm[Hg] 83 mm[Hg] Gris Zaragoza [facility] 7 15:37:36 Social History Question Answer Notes LastModified by Organizat ion Details LastModified Time Tobacco Smoking Status Current Every Day Smoker Not Available [employer] 02/12/2020 03:16:10 What Is Your Level Of Alcohol Consumption? Occasional [id number] Information not available 02/12/2020 Are You Currently Employed? No Disability [id number] Information not available 02/12/2020 Which Illicit Or Recreational Drugs Have You Used? Marijuana [id number] Information not available 02/12/2020 Education 11 Information no t available 11/02/2016 Live Alone Or With Others? Alone Information not available 11/02/2016 Marital Status Informatio n not available 11/02/2016 What Was The Date Of Your Most Recent Tobacco Screening? 11/30/2016 [id number] Information not available 02/12/2020 How Much Tobacco Do You Smoke? 1 PPD [id number] Information not available 02/12/2020 How Many Years Have You Smoked Tobacco? 30 [id number] Information not available 02/12/2020 Sex: Unknown Functional [...] SNOMED-CT Code Diagnosis ICD10 Code Diagnosis Note [id number] Godwin Polanco MD PAIN OFFICE [address] [place] [address] 11/02/2016 10:56:21 11/15/2016 10:28:35 Displacement of lumbar intervertebral disc without myelopathy 30082272 M51.26 Lumbosacra l radiculopathy 1741809 M54.16 Spinal cristobal nosis of lumbar region 23370721 M48.06 Lumbosacra l spondylosis without myelopathy 96736308 M47.817 [id number] Godwin Polanco MD PAIN OFFICE [address] [facility] [place] [address] 11/28/2016 15:30:59 11/30/2016 10:41:48 Displacement of lumbar intervertebral disc without myelopathy 66699432 M51.26 Lumbosacra l radiculopathy 6830953 M54.16 Spinal cristobal nosis of lumbar region 28937682 M48.06 Lumbosacra l spondylosis without myelopathy 12741610 M47.817 Health Concerns Section Related Observation LastModified by Organization Detai ls LastModified Time None Recorded Concern Status LastModified by Organization Details LastModified Time None Recorded Advance Directives Directive None Recorded Payers Encounter Date Sequence Insurance Name Policy Number Policy Linder Covered Member ID Linder Member ID Guarantor Name 11/02/2016 1 [facility] (MEDICARE REPLACEMENT/A DVANTAGE - PPO) [id number] Murali Marroquin [id number] Murali Marroquin 11/28/2016 1 [facility] (MEDICARE REPLACEMENT/A DVANTAGE - PPO) [id number] Murali Marroquin [id number] Murali Marroquin Notes Date Note Type Note [...] 800 mg tid. Godwin Polanco MD [address] , [address], [place], [address], [place] [facility] 11/19/2016 08:49:29 [...] for his pain. Godwin Polanco MD [address] , [address], [place], [address], [facility] 12/03/2016 09:04:08
[2024-08-14 12:07] LABS: Alanine Aminotransferase 22 U/L (0-40); Albumin Level 4.2 g/dL (3.5-5.0); Anion Gap 13 (12-20); Aspartate Amino Transferase 24 U/L (5-37); Bilirubin Total 0.3 mg/dL (0.0-1.0); Blood Urea Nitrogen 18 mg/dL (9-16); Calcium 9.4 mg/dL (8.4-10.2); Carbon Dioxide 27 mmol/L (22-29); Chloride 104 mmol/L (96-108); Estimated Glomerular Filt Rate > 60; Glucose Fasting 96 mg/dL (60-99); Potassium 4.1 mmol/L (3.3-5.1); Sodium 140 mmol/L (135-145); Total Protein 7.5 g/dL (6.5-8.0)
[2024-08-14 19:39] LABS: Alkaline Phosphatase 100 U/L (39-117)
== END 2024-08-14 10:34 | disposition home or self-care (01) ==
LOC: HO.CT 10:33
PROVIDERS: Absent Provider Physician Assistant; PCP Physician Assistant; Visit Provider Physician Assistant Medical
DX: Z12.2 Encounter for screening for malignant neoplasm of respiratory organs (principal); F17.210 Nicotine dependence, cigarettes, uncomplicated; I82.4Y1 Acute embolism and thrombosis of unspecified deep veins of right proximal lower extremity; F11.21 Opioid dependence, in remission; R05.9 Cough, unspecified; R20.2 Paresthesia of skin; Z91.09 Other allergy status, other than to drugs and biological substances; Z12.5 Encounter for screening for malignant neoplasm of prostate
CPT/HCPCS: 36415; 71271; 80053; 82785; 84153; 85027; 86003; G0296

== ENCOUNTER 2024-08-14 10:52 | Outpatient (AMB) | payer MEDICARE, SELFPAY ==
--- NOTE | 2024-08-14 08:12 | A.OFFVIS_ITS ---
Intake Visit Reasons: Current Smoker Allergies No Known Allergies Allergy (Mild, Verified 08/03/24 16:19) N/A HPI HPI Current Smoker: Details: Initial visit for this 53yo smoker with a 25PYH. Patient started smoking at age 14 for 39 years at 1/2-3/4ppd. Currently down to 1/4ppd. . Denies marijuana use. Denies second hand smoke exposure. Reports exposure to asbestos, arsenic, silica, iron dust and diesel fumes He worked at [employer]. Notes radon is area. . Denies known family history of lung cancer. Denies personal history of cancers. Denies chest CT in last year. . Denies recent travel outside the [place]. Denies recent respiratory illness or recent hospitalization for respiratory issues. Reports testing positive for COVID once. Denies receiving COVID Vaccine. . History PE in 2020. Denies fever, chills, new/worsening cough, hemoptysis, hoarseness or dysphagia. Denies significant chest pain, significant dyspnea or unintentional weight loss. Patient Lung Cancer Screening Questionnaire reviewed with patient by provider. . Shared Decision Making Completed. Patient meets criteria. Discussed in detail with patient, the risk vs benefit of LDCT screening. Patient consents to proceed with scan. Discussed smoking cessation. [facility] Medical History (Updated 08/14/24 @ 11:07 by Estelita August PA-C) History of DVT (deep vein thrombosis) (~2020) History of pulmonary embolus (PE) (~2020) Nicotine dependence, cigarettes, uncomplicated Polysubstance dependence including opioid type drug, episodic abuse Nasal septum fracture Cyst near coccyx Opiate use Right wrist drop Lumbar disc disease Surgical History History of surgical removal of pilonidal cyst History of orthopedic surgery History of lumbar fusion History of open reduction and internal fixation (ORIF) procedure History of ventral hernia repair History of inguinal hernia repair Family History Father Leukemia Mother CHF (congestive heart failure) Hypertension H/O ETOH abuse Substance use disorder Sister Diabetes Pancreatitis Substance use disorder Daughter In good health Son No problems noted. Other Mental health disorder Social History (Updated 08/14/24 @ 11:07 by Estelita August PA-C) Household Members: Other Household Members Other:: Aunt Housing: House Do you presently have visiting nurse or other home services: No Alcohol intake: current Alcohol intake frequency: holidays/special occasions on ly Comment: patient drinks responsibly Patient Tobacco Use Status: Current everyday Tobacco user Tobacco use type: Cigarette Years Smoked: (onset 14yo, 1/2-3/4ppd x 39yrs, now 1/4ppd - 25pyh) e-Cigarette/Vaping Use: Former Use Second Hand Smoke Exposure: Yes Substance Use Type: Crack/Cocaine service: No Current occupational status: disabled Cognitive needs: No Hearing needs: No Vision needs: No Assessment & Plan Assessment & Plan (1) Nicotine dependence, cigarettes, uncomplicated: Comment: (onset 14yo, 1/2-3/4ppd x 39yrs, now 1/4ppd - 25pyh) Code(s): F17.210 - Nicotine dependence, cigarettes, uncomplicated Category: Medical Plan: - SDM visit completed today in office. - Patient meets criteria for LDCT for lung cancer screening purposes and is asymptomatic. - Smoking cessation counseling offered. Patients can always call [phone]. - Will arrange for a LDCT scan of the chest for screening purposes at [facility]. - Risks, benefits, and alternatives were discussed in detail and the patient agrees to proceed. - Risks discussed include but are not limited to: radiation exposure, anxiety during testing and while awaiting results, false negatives, false positives and possibility of additional intervention such as further imaging or surgical procedures for benign disease. - Benefits are obviously detection of lung cancer at an early stage which can lead to improved outcomes. - Discussed the importance of screening program compliance with adherence to yearly LDCT scan as scheduled - or sooner interval scans for personalized screening regimen. - Discussed follow up plan. Our office will send a letter discussing results and if needed set up phone call and office visit based on CT findings. - Patient educated on results categorization and the management decisions for suspicious findings potentially found on the screening LDCT scan. Any patient with a Lung RADS score of 3 or 4 will be reviewed by a multidisciplinary team at [facility] to form a plan of action in regards to scan findings. - If further work up is warranted for a suspicious lung finding this will be followed by the Lung Cancer Screening program in conjunction with the Thoracic Surgery Department at [facility]. - A copy of the office note and LDCT will be sent to the patient's PCP - as well as documentation on any associated further plans of care. - Incidental findings on LDCT are the PCP's responsibility. These findings are indicated with an S finding on the LDCT Assessment. A note discussing the findings will be sent to the PCP who is then responsible for further management. - All questions answered.? Coding Level of Care Code Lung Cancer Screening G0296 Diagnoses Nicotine dependence, cigarettes, uncomplicated F17.210
== END 2024-08-14 11:11 | disposition home or self-care (01) ==
LOC: HO.HPS 10:53
PROVIDERS: PCP Physician Assistant; Referring Provider Physician Assistant; Visit Provider Physician Assistant Medical
DX: F17.210 Nicotine dependence, cigarettes, uncomplicated (principal)
CPT/HCPCS: G0296

== ENCOUNTER → 2024-08-14 11:11 | Outpatient (BNV) | payer MEDICARE, SELFPAY | PROVIDERS: Absent Provider Physician Assistant; PCP Physician Assistant; Visit Provider Radiology Diagnostic Radiology | DX: F17.210 Nicotine dependence, cigarettes, uncomplicated (principal) | CPT/HCPCS: 71271 ==

== ENCOUNTER 2025-04-09 16:17 | Emergency (ER) | payer MEDICARE, SELFPAY ==
--- NOTE | ~2025-04-09 | CT_ITS ---
CLINICAL HISTORY: abd pain, hx multiple abd hernias CT abdomen and pelvis without contrast Comparison: None provided Findings: There is motion artifact in the lung bases. There is a 4 mm nodule in the right lower lobe. The liver, gallbladder, pancreas, spleen, adrenal glands, and kidneys are unremarkable. The appendix is not visualized. There are no findings of appendicitis. There is a moderate amount of stool in the colon. The gastrointestinal tract is otherwise unremarkable. Patient is status post ventral hernia repair and right inguinal hernia repair. There are no enlarged lymph nodes. The aorta is normal in diameter. The bladder and prostate are unremarkable. Patient is status post L4-5 and L5-S1 discectomies with interbody spacers. There is no fracture or suspicious lytic or sclerotic lesion. IMPRESSION: 1. No acute abnormality in the abdomen or pelvis. 2. 4 mm nodule in the right lower lobe. Follow-up recommendations based on Fleischner Society guidelines as below: Single solid lung nodule < 6 mm: In a low-risk patient, no routine follow-up imaging is recommended. In a high-risk patient, a non-contrast Chest CT at 12 months is optional. If performed and the nodule is stable at 12 months, no further follow-up is recommended. These guidelines do not apply to patients younger than 35 years, immunocompromised patients, and patients with cancer. F/U in patients with significant comorbidities as clinically warranted. For lung cancer screening, adhere to Lung-RADS guidelines. Reference: Radiology. 2017 Carlos; 284(1):228-24. This document has been electronically signed by: Harshad Blanc MD on 04/09/2025 22:40:56
[2025-04-09 16:38] VITALS: BP 159/67; PULSE 116; RESP 18; TEMP 36.6; O2SAT 96; BMI 28.3
--- NOTE | 2025-04-09 16:40 | ED.GENADULT ---
HPI - General Adult General Chief complaint: Abdominal Pain Stated complaint: Hernia Time Seen by Provider: 04/09/25 21:16 Source: patient Mode of arrival: ambulatory Limitations: no limitations History of Present Illness ED Provider: Dr. Dixie Kam HPI narrative: Patient comes to the emergency room complaining of abdominal pain. Patient states that he has a history of hernias in the past including umbilical and inguinal hernias. Patient states that this time he feels that there is a hernia popping out in the middle of the abdomen below the epigastric area. However, patient states that what is bothering him the most is that he has not been able to sleep for several days. Patient admits to IV drug use. Patient states that 2 days ago he was seen in the hospital in [place] and was told that his workup was negative. Patient requesting that we give him something to eat and something to sleep Related Data Previous Rx's ?Medication ?Instructions ?Recorded permethrin 5 % topical cream 1 appl topical Q14D 2 doses #60 05/20/24 grams apixaban 5 mg tablet (Eliquis) 5 mg PO BID 30 days #60 tabs 06/01/24 gabapentin 400 mg capsule 400 mg PO TID 30 days #90 caps 11/12/24 zolpidem 5 mg tablet 5 mg PO BEDTIME PRN insomnia #5 04/09/25 tabs Allergies Allergy/AdvReac Type Severity Reaction Status Date / Time No Known Allergies Allergy Mild N/A Verified 04/09/25 16:41 Review of Systems Review of Systems: Constitutional : No Weight loss, No Fever, No Chills, No Night Sweats, No Fatigue, No Malaise, complaining of feeling hungry ENT/Mouth : No Hearing loss, No Ear Pain, No Nasal Congestion, No Sinus Pain, No Hoarseness, No sore throat, No Rhinorrhea, No Swallowing Difficulty Eyes: No Eye Pain, No Swelling, No Redness, No Foreign Body, No Discharge, No Vision Changes Cardiovascular : No Chest Pain, No SOB, No Dyspnea on Exertion, No Orthopnea, No Edema, No Palpitations Respiratory : No Cough, No Sputum, No Wheezing, No Smoke Exposure, No Dyspnea Gastrointestinal : Complaining of abdominal pain in the epigastric area, patient believes that it is a hernia. No Nausea, No Vomiting, No Diarrhea, No Constipation, No abdominal Pain, No Hematochezia, No Melena Genitourinary : no irregular bleeding, No Dysuria, No Urinary Frequency, No Hematuria, No Urinary Incontinence, No Urgency, No Flank Pain, No Urinary Flow Changes, No Hesitancy Musculoskeletal : No joint pain, No Myalgias, No Joint Swelling Skin : No Skin Lesions, No rash Neuro : Complaining of insomnia, No Weakness, No Numbness, No Paresthesias, No Loss of Consciousness, No Dizziness, No Headache Psych : No Anxiety/Panic, No Depression, No SI/HI/AH/VH, admits to polysubstance abuse Heme/Lymph: No Bruising, No Bleeding,No Lymphadenopathy Endocrine : No Polyuria, No Polydipsia, No Temperature Intolerance FOR[facility] Past Medical History Medical History History of DVT (deep vein thrombosis) (~2020) History of pulmonary embolus (PE) (~2020) Nicotine dependence, cigarettes, uncomplicated Polysubstance dependence including opioid type drug, episodic abuse Nasal septum fracture Cyst near coccyx Opiate use Right wrist drop Lumbar disc disease Surgical History History of surgical removal of pilonidal cyst History of orthopedic surgery History of lumbar fusion History of open reduction and internal fixation (ORIF) procedure History of ventral hernia repair History of inguinal hernia repair Family History Family History Father Leukemia Mother CHF (congestive heart failure) Hypertension H/O ETOH abuse Substance use disorder Sister Diabetes Pancreatitis Substance use disorder Daughter In good health Son No problems noted. Other Mental health disorder Social History Social History Household Members: Other Household Members Other:: Aunt Housing: House Do you presently have visiting nurse or other home services: No Alcohol intake: current Alcohol intake frequency: holidays/special occasions only Comment: patient drinks responsibly Patient Tobacco Use Status: Current everyday Tobacco user Tobacco use type: Cigarette Years Smoked: (onset 14yo, 1/2-3/4ppd x 39yrs, now 1/4ppd - 25pyh) e-Cigarette/Vaping Use: Former Use Second Hand Smoke Exposure: Yes Substance Use Type: Crack/Cocaine Advance Directives: No Advance Directives Information Provided: Yes service: No Current occupational status: disabled Cognitive needs: No Hearing needs: No Vision needs: No Physical Exam ED Exam Exam: Appearance: Alert. Oriented X3. No acute distress. Eyes: Pupils equal, round and reactive to light. ENT: Pharynx normal. Neck: Normal inspection. Neck supple. No lymph nodes noted. No crepitus CVS: Normal heart rate and rhythm. Pulses normal. Normal S1 and S2 Respiratory: No respiratory distress. Breath sounds normal. No Wheezing. No rales Abdomen: Soft, there seems to be a defect in the abdominal wall. However, this time I do not feel any protruding hernias. No rigidity. No distention. Skin: Skin warm and dry. Normal skin color. Normal skin turgor. Extremities: No lower extremity edema. No Lacerations. No Rash Neuro: Oriented X 3. No motor deficit. No sensory deficit. Moving all extremities. No slurred speech. CN 2 through 12 grossly intact Psych: calm, cooperative, seems frustrated Vital Signs: Vital Signs - 24 hr 04/09/25 16:38 04/09/25 19:20 04/09/25 22:00 Temperature 97.8 F 98.7 F 97.9 F Pulse Rate 116 H 115 H 100 Respiratory Rate 18 18 20 Blood Pressure 159/67 H 140/83 H 118/77 Pulse Oximetry 96 97 95 Oxygen Delivery Method Room Air Room Air Room Air BMI result Body Mass Index 28.3 Course Course Course Narrative: Rapid medical examination performed in triage by Marie Romano PA-C: Patient is a 54 year old assigned male at presenting to the emergency department with lower abdominal pain and concern about a hernia. 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 Labs ordered. Patient placed back in the waiting room pending room availability and results. Medications Administered Discontinued Medications Generic Name Dose Route Start Last Admin Trade Name Freq PRN Reason Stop Dose Admin Acetaminophen 650 mg 04/09/25 19:19 04/09/25 19:22 Acetaminophen 325 Mg Tablet PO 04/09/25 19:20 650 mg ONCE STA Administration Medical Decision Making Medical Decision Making [facility] Narrative: My interpretation of labs: Patient's white blood cell count 15.4, no clear source of infection. No URI UTI symptoms. Urinalysis pending. Chemistry does not show any acute abnormality. LFTs within normal limits Fifty scan does not show any acute abnormality. Patient does have a 4 mm nodule, right lower lobe, discussed with the patient, patient will follow-up with PCP. Based on size, recommendations: For low risk patients no routine follow-up recommended. Patient was given food and a prescription for sleep. Patient denies SI or HI. Differential Diagnosis Differential Diagnoses: The differential diagnosis associated with the presentation includes (Abdominal wall defect, incarcerated hernia, anxiety) Admission/Observation Consideration of admission/observation: Escalation of care including admission/observation considered (Given patient's complaints and prior history, observation was considered) Lab Data MDM Lab Attestation statement: I reviewed the patient's lab results. 04/09/25 17:09 04/09/25 17:09 Labs: Lab Results 04/09/25 Range/Units 17:09 WBC 15.4 H (4.8-10.8) X10*3/uL RBC 4.84 (4.60-5.80) X10*6/uL Hgb 15.6 (14.0-18.0) g/dl Hct 47.2 (42.0-52.0) % MCV 97.5 (80.0-98.0) fL MCH 32.2 (27.0-33.0) pg MCHC 33.1 (31.0-36.0) g/dl RDW 14.6 (11.0-16.0) % Plt Count 284 (160-400) X10*3/uL MPV 10.2 (9.4-12.4) fL Immature Gran % (Auto) 0.3 (0.0-0.4) % Neut % (Auto) 86.4 H (45-73) % Lymph % (Auto) 5.2 L (20-40) % [place] % (Auto) 7.5 (2-11) % Eos % (Auto) 0.2 (0-4) % Baso % (Auto) 0.4 (0-2) % Lymph # (Auto) 0.8 L (1.2-4.9) X10*3/uL [place] # (Auto) 1.2 (0.1-1.2) X10*3/uL Eos # (Auto) 0.0 (0.0-0.4) X10*3/uL Baso # (Auto) 0.1 (0.0-0.2) X10*3/uL Abs Immat Gran (auto) 0.04 H (0.00-0.03) X10*3/uL Absolute Neuts (auto) 13.3 H (2.0-8.3) x10*3/uL Absolute Nucleated RBC 0.000 (0.0-0.012) X10*3/uL Nucleated RBC % (auto) 0.0 (0.0-0.2) /100WBC ESR 11 (1-20) MM/HR Sodium 141 (135-145) mmol/L Potassium 4.9 (3.3-5.1) mmol/L Chloride 105 (96-108) mmol/L Carbon Dioxide 26 (22-29) mmol/L Anion Gap 15 (12-20) BUN 16 (9-16) mg/dL Creatinine 1.18 (0.5-1.4) mg/dL Estim Creat Clear Calc 86.4 Estimated GFR > 60 Random Glucose 136 H (60-115) mg/dL Calcium 9.2 (8.4-10.2) mg/dL Magnesium 2.0 (1.6-2.6) mg/dL Total Bilirubin 0.2 (0.0-1.0) mg/dL AST 26 (5-37) U/L ALT 29 (0-40) U/L Alkaline Phosphatase 88 (39-117) U/L C-Reactive Protein 0.26 (< or = 0.50) mg/dL Total Protein 7.4 (6.5-8.0) g/dL Albumin 4.7 (3.5-5.0) g/dL Independent Interpretation I performed an independent interpretation of an: CT Scan Radiology Impression Discussion of test interpretation with radiology: I have reviewed the radiologist's reading. Radiologist Impression: The visualized deep veins are fully compressible with normal Doppler color flow and spectral tracings. No popliteal cyst. IMPRESSION: 1. Negative for left lower extremity deep vein thrombosis. Critical Care Time Critical Care Time Critical Care Time: Yes Total Critical Care Time: 35 Attestation: I have personally provided critical care time. Time includes review of lab data, radiology results, discussion with consultants, and monitoring for potential decompensation. Intervention performed as documented. Discharge Plan Discharge Clinical Impression: Abdominal pain, Insomnia Patient Disposition: Home, Self-Care Instructions: Abdominal Pain (ED), Insomnia (ED) Additional Instructions: Please follow-up with your primary care physician tomorrow. If you have any worsening or new symptoms, please return to the emergency room or call 911 Prescriptions: New zolpidem 5 mg tablet 5 mg PO BEDTIME PRN (Reason: insomnia) Qty: 5 0RF No Action Eliquis 5 mg tablet 5 mg PO BID 30 Days Qty: 60 0RF gabapentin 400 mg capsule 400 mg PO TID 30 Days Qty: 90 3RF permethrin 5 % cream 1 appl topical Q14D Qty: 60 2RF Rx Instructions: apply second treatment 14 days after first treatment if live lice remain Print Language: Syriac
[2025-04-09 17:13] LABS: MANUAL DIFF FLAG NO
[2025-04-09 17:15] LABS: Hematocrit 47.2 % (42.0-52.0); Hemoglobin 15.6 g/dl (14.0-18.0); Imm Gran Abs Auto 0.04 X10*3/uL (0.00-0.03); Imm Gran Pct Auto 0.3 % (0.0-0.4); Lymphocytes Absolute Auto 0.8 X10*3/uL (1.2-4.9); Mean Corpuscular HGB Conc 33.1 g/dl (31.0-36.0); Mean Corpuscular Hemoglobin 32.2 pg (27.0-33.0); Mean Corpuscular Volume 97.5 fL (80.0-98.0); NRBC Abs Auto 0.000 X10*3/uL (0.0-0.012); NRBC Pct Auto 0.0 /100WBC (0.0-0.2); Platelet Count 284 X10*3/uL (160-400); Red Blood Count 4.84 X10*6/uL (4.60-5.80); White Blood Count 15.4 X10*3/uL (4.8-10.8)
[2025-04-09 17:31] LABS: Alanine Aminotransferase 29 U/L (0-40); Albumin Level 4.7 g/dL (3.5-5.0); Alkaline Phosphatase 88 U/L (39-117); Anion Gap 15 (12-20); Aspartate Amino Transferase 26 U/L (5-37); Blood Urea Nitrogen 16 mg/dL (9-16); Calcium 9.2 mg/dL (8.4-10.2); Carbon Dioxide 26 mmol/L (22-29); Chloride 105 mmol/L (96-108); Creatinine Clr Calc Pharmacy 86.4; Estimated Glomerular Filt Rate > 60; Magnesium 2.0 mg/dL (1.6-2.6); Potassium 4.9 mmol/L (3.3-5.1); Sodium 141 mmol/L (135-145); Total Protein 7.4 g/dL (6.5-8.0)
[2025-04-09 19:20] VITALS: BP 140/83; PULSE 115; RESP 18; TEMP 37.1; O2SAT 97
--- NOTE | 2025-04-09 19:23 | PC.NURSE ---
pt took his own gabapentin 800mg.
--- NOTE | 2025-04-09 21:30 | ECG_ITS ---
Test Reason : abdominal pain Blood Pressure : */* mmHG Vent. Rate : 91 BPM Atrial Rate : 91 BPM P-R Int : 154 ms QRS Dur : 80 ms QT Int : 348 ms P-R-T Axes : 83 56 65 degrees QTcB Int : 428 ms Normal sinus rhythm Normal ECG When compared with ECG of 24-Oct-2021 06:28, Nonspecific T wave abnormality no longer evident in Anterior leads Referred By: Dixie Kam Electronically Signed By: STEPHANIE BROWN MD
[2025-04-09 22:00] VITALS: BP 118/77; PULSE 100; RESP 20; TEMP 36.6; O2SAT 95
[2025-04-09 22:58] VITALS: BP 118/77; PULSE 100; RESP 20; TEMP 36.6; O2SAT 95
== END 2025-04-09 23:28 | disposition home or self-care (01) ==
PROVIDERS: Physician Assistant Medical; Emergency Provider Emergency Medicine; PCP Physician Assistant
DX: R10.13 Epigastric pain (principal); G47.00 Insomnia, unspecified; F19.20 Other psychoactive substance dependence, uncomplicated; F17.210 Nicotine dependence, cigarettes, uncomplicated; Z86.711 Personal history of pulmonary embolism; Z79.01 Long term (current) use of anticoagulants
CPT/HCPCS: 36415; 74176; 80053; 83735; 85025; 85652; 86140; 93005; 99284

== ENCOUNTER → 2025-04-09 21:21 | Outpatient (BNV) | payer MEDICARE, SELFPAY | PROVIDERS: Emergency Provider Emergency Medicine; PCP Physician Assistant; Visit Provider Radiology Diagnostic Radiology | DX: R10.9 Unspecified abdominal pain (principal); R91.1 Solitary pulmonary nodule | CPT/HCPCS: 74176 ==

== ENCOUNTER → 2025-04-09 21:30 | Outpatient (BNV) | payer MEDICARE, SELFPAY | PROVIDERS: Emergency Provider Emergency Medicine; PCP Physician Assistant; Visit Provider Internal Medicine Cardiovascular Disease | DX: R10.9 Unspecified abdominal pain (principal) | CPT/HCPCS: 93010 ==